=== PATIENT | male | born 1930 | race Caucasian/White ===

== ENCOUNTER 2016-12-18 02:37 | Emergency (ER) | payer MEDICARE ==
[2016-12-18] MEDS ORDERED: NS 0.9% 1000 ML* 1,000 ML IV ONE ×2 (03:00→03:30)
[2016-12-18 04:06] LABS: Add Diff/Slide Review? Slide Review Added; Comments Flag Yes; Hematocrit 36 % (42-52); Mean Corpuscular HGB Conc 33 g/dl (31-36); Mean Corpuscular Hemoglobin 30 pg (27-31); Mean Corpuscular Volume 89 fL (80-94); Mean Platelet Volume 8 um3 (7.4-10.4); Red Blood Count 4.06 10^6/ul (4.0-5.4); Red Cell Distribution Width 14 % (10.5-15); White Blood Count 12.3 10^3/ul (3.5-10.8)
[2016-12-18 04:22] LABS: Albumin 2.9 g/dL (3.2-5.2); BUN/Creatinine Ratio 19.5 (8-20); Calcium 8.2 mg/dL (8.6-10.3); EGFR African American 107.5 (>60); EGFR Non-African American 83.6 (>60); Globulin 2.6 g/dL (2-4); Magnesium 1.8 mg/dL (1.9-2.7); Potassium 4.1 mmol/L (3.5-5.0); Total Bilirubin 0.6 mg/dL (0.2-1.0); Total Protein 5.5 g/dL (6.4-8.9)
[2016-12-18 04:24] LABS: Troponin I 0.01 ng/mL (<0.04)
[2016-12-18 04:31] LABS: TSH (Thyroid Stimulating Horm) 2.3 mcIU/mL (0.34-5.60)
[2016-12-18] MEDS ORDERED: Magnesium Oxide TAB* 400 MG PO ONE ×2 (05:51→06:02)
--- NOTE | 2016-12-18 06:12 | ED ---
Guanakito Do Aidan, scribed for Robles Castañeda on 12/18/16 at 0401 . Syncope/Near Syncope - HPI Summary HPI Summary: 86 y/o male presents to the ED with a complaint of an acute, moderate episode of syncope that occurred while he was sitting down roughly 30 minutes ago. During the event, his eyes rolled back and his jaw dropped. Additionally, during and just after the event, he could not see. Currently, he feels fine and denies any weakness or numbness. Hx of sepsis and gallbladder removal. No Hx of SD or stroke. - History Of Current Complaint Chief Complaint: EDSyncope Time Seen by Provider: 12/18/16 03:29 Hx Obtained From: Patient, Family/Investment Strategist Onset/Duration: Sudden Onset, Resolved Timing: Seconds - Pt was unconscious for close to a minute Context: Witnessed Activity At Onset: At Rest - sitting down Associated Head Trauma: No Aggravating Factor(s): Other - unknown Alleviating Factor(s): Other - unknown Associated Signs And Symptoms: Other - during event, Pt's eyes rolled back, his jaw dropped, and he became nonresponsive. Both during and after, he could not see. Currently he is symptomless Frequency: Episodes x___ - 1, Episodes Lasting ____ (in Mins/Days/Weeks/Years) - close to a minute - Allergies/Home Medications Allergies/Adverse Reactions: Allergies Allergy/AdvReac Type Severity Reaction Status Date / Time No Known Allergies Allergy Verified 12/18/16 03:07 PMH/Surg Hx/FS Hx/Imm Hx Infectious Disease History: No Infectious Disease History: Denies: Traveled Outside the [place] in Last 30 Days - Family History Known Family History: Positive: Hypertension - Social History Occupation: Employed Full-time Lives: With Family Alcohol Use: None Substance Use Type: Reports: None Smoking Status (MU): Never Smoked Tobacco Review of Systems Constitutional: Negative Eyes: Negative ENT: Negative Cardiovascular: Negative Respiratory: Negative Gastrointestinal: Negative Genitourinary: Negative Musculoskeletal: Negative Skin: Negative Positive: Syncope. Negative: Headache, Weakness, Paresthesia, Numbness, Slurred Speech Psychological: Normal All Other Systems Reviewed And Are Negative: Yes Physical Exam Triage Information Reviewed: Yes Vital Signs On Initial Exam: Initial Vitals Temp Pulse Resp BP Pulse Ox 97 F 69 16 68/46 95 12/18/16 02:58 12/18/16 02:58 12/18/16 02:58 12/18/16 02:58 12/18/16 02:58 Vital Signs Reviewed: Yes Appearance: Positive: Well-Appearing, No Pain Distress Skin: Positive: Warm, Skin Color Reflects Adequate Perfusion, Dry Head/Face: Positive: Normal Head/Face Inspection Eyes: Positive: EOMI, ANGIE ENT: Positive: Normal ENT inspection Neck: Positive: Supple, Nontender Respiratory/Lung Sounds: Positive: Clear to Auscultation, Breath Sounds Present Cardiovascular: Positive: Normal, RRR, Pulses are Symmetrical in both Upper and Lower Extremities Abdomen Description: Positive: Nontender, Soft Bowel Sounds: Positive: Present Musculoskeletal: Positive: Normal, Strength/ROM Intact Neurological: Positive: Normal, Sensory/Motor Intact, Alert, Oriented to Person Place, Time Psychiatric: Positive: Normal, Affect/Mood Appropriate AVPU Assessment: Alert - [place] Coma Scale Coma Scale Total: 15 Diagnostics - Vital Signs Vital Signs Temp Pulse Resp BP Pulse Ox 12/18/16 03:40 69 16 114/64 97 12/18/16 02:58 97 F 69 16 68/46 95 - Laboratory Result Diagrams: 12/18/16 04:00 12/18/16 04:00 Lab Statement: Any lab studies that have been ordered have been reviewed, and results considered in the medical decision making process. - CT BRAIN CT CT Interpretation: No Acute Changes - No acute brain parenchymal abnormality. No hemorrhage, mass or acute territorial infarct. Clear visualized sinuses. Visualized mastoid air cells clear., Positive (See Comments) - Age-related involutional changes and chronic small vessel ischemic changes. Small gas bubbles left facial and scalp soft tissues, probably related to recent IV injection. CT Interpretation Completed By: Radiologist - banquet set up person - EKG EKG 0237 Cardiac Rate: NL - 71 BPM EKG Rhythm: Sinus Rhythm EKG Interpretation: SINUS RHYTHM, RIGHT BUNDLE BRANCH BLOCK Course/Dx Course Of Treatment: This is an 86 y/o male presenting for syncope. CT was negative. The patient wishes to leave and is well enough to be discharged with a Dx of hypotension and dizziness. - Diagnoses Provider Diagnoses: Hypotension, Dizziness Discharge - Discharge Plan Condition: Stable Disposition: HOME Discharge Disposition Comment: Please follow up with your primary care provider within 3 days. Patient Education Materials: Hypotension (ED), Dizziness (ED) The documentation as recorded by the Guanakito durbin Aidan accurately reflects the service I personally performed and the decisions made by me, Robles Castañeda.
[2016-12-18 06:22] VITALS: BP 132/57
--- NOTE | 2016-12-18 08:24 | RAD ---
Indication: Dizziness, syncope. CT of the brain was performed without IV contrast. Ventricular structures are midline. No midline shift is noted. The extra-axial spaces are unremarkable. There is no intracranial mass or hemorrhage noted. No other high or low density lesions identified mastoid air cells and paranasal sinuses are clear. IMPRESSION: No intracranial mass or hemorrhage is noted.
== END 2016-12-18 06:21 | disposition home or self-care (01) ==
LOC: ED 02:37
DX: R42 Dizziness and giddiness (principal); I95.9 Hypotension, unspecified; R53.83 Other fatigue; I45.10 Unspecified right bundle-branch block
CPT/HCPCS: 36415; 70450; 80053; 83605; 83735; 84443; 84484; 85025; 93005; 96360; 96361; 99283

== ENCOUNTER 2017-02-26 20:48 | Inpatient (IN) | payer BC, MEDICARE ==
[2017-02-26 21:20] LABS: Hematocrit 38 % (42-52); Hemoglobin 12.4 g/dl (14.0-18.0); Mean Corpuscular HGB Conc 33 g/dl (31-36); Mean Corpuscular Hemoglobin 29 pg (27-31); Mean Corpuscular Volume 87 fL (80-94); Mean Platelet Volume 8 um3 (7.4-10.4); Red Blood Count 4.34 10^6/ul (4.0-5.4); Red Cell Distribution Width 14 % (10.5-15); White Blood Count 15.1 10^3/ul (3.5-10.8)
[2017-02-26 21:32] LABS: BUN/Creatinine Ratio 19.6 (8-20); Calcium 8.2 mg/dL (8.6-10.3); EGFR African American 100.8 (>60); EGFR Non-African American 78.4 (>60); Globulin 3.1 g/dL (2-4); Potassium 3.4 mmol/L (3.5-5.0); Total Bilirubin 0.5 mg/dL (0.2-1.0); Total Protein 6.1 g/dL (6.4-8.9)
[2017-02-26 21:39] LABS: Troponin I 0.06 ng/mL (<0.04)
--- NOTE | 2017-02-26 21:45 | RAD ---
Indication: Syncope. CT of the brain was performed without IV contrast. Ventricular structures are midline. No midline shift is noted. Central and cortical atrophy is noted. There is no evidence of intracranial mass or hemorrhage. No other high or low density lesions are identified. Deep white matter lucencies are noted consistent with chronic ischemic White matter change. Mastoid air cells and paranasal sinuses are otherwise unremarkable. Overall no changes noted since December 18, 2016. IMPRESSION: Chronic ischemic White matter change. No intracranial mass or hemorrhage.
[2017-02-26] MEDS ORDERED: Iohexol 350* (CONTRAST) 500 ML MDV IV ONE (21:52)
--- NOTE | 2017-02-26 22:02 | RAD ---
Indication: Syncope, neck pain. CT of the cervical spine was obtained in the axial plane. Sagittal and coronal reconstructed images were obtained. The skull base demonstrates no fracture. C1 ring is intact. Degenerative changes of the atlantoaxial joint is noted. At C2-C3, C3-C4, C4-C5, there is no disc protrusion noted. No fractures identified. Degenerative disc disease at C5-C6 with dorsal osteophyte. No definite central stenosis is noted. There may be right foraminal stenosis is noted. At C6-C7 degenerative disc disease with spondylytic ridge flattens the thecal sac. No central or foraminal stenosis is noted. At C7-T1 disc is preserved in height and signal. 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 No fractures identified.
[2017-02-26 22:03] LABS: TSH (Thyroid Stimulating Horm) 2.43 mcIU/mL (0.34-5.60)
[2017-02-26] MEDS ORDERED: Morphine INJ* 2 MG/ML 1 ML SYRINGE IV ONE (22:27)
--- NOTE | 2017-02-26 22:52 | ED ---
I, Oh,Lisseth, scribed for Robbie Barahona MD on 02/26/17 at 2106 . 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 Daughter is present at bedside and provides collateral. Pt called his daughter this evening stating that he "wasn't feeling good". Daughter visited pt and noted pt with chills, fever of 100.2 F, SOB, and VALDOVINOS. She hydrated pt with getorade. Pt ambulated out onto deck to take a leak "at the edge of wood" since their bathroom is being redone. Daughter heard a bang and found pt had fallen on his back against the wooden chair on deck. Daughter is unsure how long the syncopal episode was. Positive upper back pain, and head laceration at left parietal lobe. Pt was last seen in ED for similar complaints on 12/18/2016, after which pt was admitted. He reports that he is currently not on blood thinner. - History Of Current Complaint Time Seen by Provider: 02/26/17 20:50 Hx Obtained From: Patient, Family/Director Hris, EMS Onset/Duration: Resolved Timing: Intermittent Episode Lasting Context: Unwitnessed Aggravating Factor(s): Nothing Alleviating Factor(s): Spontaneous Resolution Associated Signs And Symptoms: Shortness Of Breath - Allergies/Home Medications Allergies/Adverse Reactions: Allergies Allergy/AdvReac Type Severity Reaction Status Date / Time No Known Allergies Allergy Verified 12/18/16 03:07 Home Medications: Home Medications Aspirin [Aspirin 81 MG TAB] 81 mg PO DAILY 02/26/17 [History Confirmed 02/26/17] Omeprazole CAP* [Prilosec CAP* 20 MG] 20 mg PO DAILY 02/26/17 [History Confirmed 02/26/17] Tamsulosin CAP* [Flomax CAP*] 0.4 mg PO DAILY 02/26/17 [History Confirmed ] PMH/Surg Hx/FS Hx/Imm Hx Neurological History: Reports: Other Neuro Impairments/Disorders - previous syncopal episode Infectious Disease History: Denies: Traveled Outside the [place] in Last 30 Days - Family History Known Family History: Positive: Hypertension - Social History Alcohol Use: None Hx Substance Use: No Substance Use Type: Reports: None Hx Tobacco Use: No Smoking Status (MU): Never Smoked Tobacco Review of Systems Positive: Fever - temperature of 100.2 F at home, Chills Positive: Shortness Of Breath Positive: Other - upper back pain Positive: Other - laceration at left parietal lobe Positive: Headache All Other Systems Reviewed And Are Negative: Yes Physical Exam Triage Information Reviewed: Yes Vital Signs Reviewed: Yes Appearance: Positive: No Pain Distress, Ill-Appearing Skin: Positive: Warm Head/Face: Positive: Other - 3cm post occipital lac Eyes: Positive: ANGIE ENT: Positive: Hearing grossly normal Neck: Positive: Supple Respiratory/Lung Sounds: Positive: Clear to Auscultation, Breath Sounds Present Cardiovascular: Positive: RRR Abdomen Description: Positive: Nontender, Soft Bowel Sounds: Positive: Present Musculoskeletal: Positive: Strength/ROM Intact Neurological: Positive: Alert, Oriented to Person Place, Time Procedures - Laceration/Wound Repair 1 Location: head - left parietal lobe Description: Stellate Betadine Prep?: No Laceration/Wound Explored: clean Closure: [place] #__ - 5 Layer Closure?: No Sterile Dressing Applied?: No Diagnostics - Laboratory Result Diagrams: 02/27/17 05:06 02/26/17 21:10 Lab Statement: Any lab studies that have been ordered have been reviewed, and results considered in the medical decision making process. - Radiology CXR Radiology Interpretation Completed By: ED Physician - CT Brain CT Interpretation: No Acute Changes - Chronic ischemic White matter change. No intracranial mass or hemorrhage. 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 No fractures identified. CT Interpretation Completed By: Radiologist CTA Chest/thorax CT Interpretation: No Acute Changes - No evidence of PE. CT Interpretation Completed By: Radiologist - EKG 210 Cardiac Rate: NL - 81 bpm EKG Rhythm: Sinus Rhythm EKG Interpretation: RBBB Re-Evaluation - Re-Evaluation First Eval Re-Evaluation Time: 00:03 Comment: in room to place sruthi on left parietal head laceration. 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 Pt was reported to have complained of chills, SOB, and "not feeling well" before the episode. Daughter came over in her home in neighborhood to check on patient and hydrated him with getorade. Pt was seen ambulating out to deck and was later found to have syncopized by daughter after a loud bang. Pt had fallen down on his back onto wooden deck chair. Blood work is noted with elevated D-dimer over 1050, lactic acid of 2.6, and trop of 0.06. CT Brain is noted with chronic change in white matter. CT C-spine is noted with denerative changes without evidence of fracture or acute finding. Plan of care is discussed with Dr. Mims, hospitalist road commissioner. - Diagnoses Provider Diagnoses: Syncope - Physician Notifications Discussed Care of Patient With: Oswaldo Mims Time Discussed With Above Provider: 21:55 Instructed by Provider To: Admit As Inpatient - Critical Care Time Critical Care Time: 30-74 min Discharge - Discharge Plan Condition: Fair Disposition: ADMITTED TO [facility] The documentation as recorded by the Terry durbin Soohyun accurately reflects the service I personally performed and the decisions made by me, Robbie Barahona MD.
[2017-02-27 00:33] LABS: Urine Bacteria Absent (Absent); Urine Bilirubin Negative (Negative); Urine Glucose 2+(150 mg/dL) (Negative); Urine Nitrite Negative (Negative)
[2017-02-27] MEDS: NS 0.9% 1000 ML* 1,000 ML IV SCH ×3 (01:43→22:34)
[2017-02-27] MEDS: Acetaminophen TAB* 325 MG PO PRN ×3 (01:46→16:36)
[2017-02-27 05:19] LABS: Hematocrit 34 % (42-52); Hemoglobin 11.3 g/dl (14.0-18.0); Mean Corpuscular HGB Conc 33 g/dl (31-36); Mean Corpuscular Hemoglobin 29 pg (27-31); Mean Corpuscular Volume 87 fL (80-94); Mean Platelet Volume 8 um3 (7.4-10.4); Red Blood Count 3.94 10^6/ul (4.0-5.4); Red Cell Distribution Width 14 % (10.5-15); White Blood Count 14.8 10^3/ul (3.5-10.8)
[2017-02-27] MEDS: Morphine INJ* 2 MG/ML 1 ML SYRINGE IV PRN ×3 (05:23→23:42)
[2017-02-27] MEDS ORDERED: Heparin VIAL(*) 5000 UNITS/ML VIAL (FIVE THOUSAND) SUBCUT SCH (06:00)
--- NOTE | 2017-02-27 06:33 | PN ---
Progress Note - Progress Note Date of Service: 02/27/17 Note: Spoke to Dr. Grider - quality control lead Neurosurgeon - cell number [phone] . He does not see T8 fracture on CT as reported by quality control lead radiology. Recommends TLSO brace, then ambulate, then MRI of thoracic spine. He will advise Dr. Lynn.
[2017-02-27 06:39] LABS: EGFR African American 118.4 (>60); EGFR Non-African American 92.1 (>60); Potassium 3.9 mmol/L (3.5-5.0)
--- NOTE | 2017-02-27 08:57 | RAD ---
Indication: Syncope. 2 views of the chest and shape no mediastinal shift. Cardiomegaly is noted. No alveolar consolidation is noted. No pleural fluid, pneumonia or pneumothorax is noted. IMPRESSION: No active cardiopulmonary disease is noted.
[2017-02-27] MEDS ORDERED: Tamsulosin CAP* 0.4 MG PO SCH (09:00)
[2017-02-27] MEDS: Aspirin EC Low Dose* 81 MG TAB.EC PO SCH (09:00)
[2017-02-27] MEDS: Omeprazole CAP* 20 MG PO SCH (09:00)
--- NOTE | 2017-02-27 09:35 | RAD ---
Indication: Syncope, elevated d-dimer. Contrast: Administered 73.0 ml of OMNIPAQUE 350 mg/ml CTA of the chest was performed without IV contrast administration. Coronal and sagittal reconstructed images were obtained. The pulmonary arterial tree is well opacified. There are no filling defects present to suggest pulmonary embolus. Small 5 mm AP window lymph nodes and precarinal nodes are noted. The heart is enlarged without pericardial effusion. The aorta demonstrates no evidence of aortic dissection or aneurysmal dilatation. Intimal wall thickening of the descending aorta is noted. Is noted. There is a hiatal hernia present. Bibasilar atelectasis is noted. No alveolar consolidation is noted. The thoracic spine demonstrates no compression fracture. IMPRESSION: No definite pulmonary embolus is noted. No pulmonary nodules are noted although dependent changes noted in the lung bases. Likely hiatal hernia.
--- NOTE | 2017-02-27 10:16 | RAD ---
Indication: Back pain after fall. CT of the thoracic spine was obtained in the axial plane. Sagittal and coronal reconstructed images were obtained. The vertebral bodies appear normal in height. No compression fracture is noted. There is a lucency through the vertebral body of T8. This is a background of diffuse osteopenia and extends through the transverse ligament. This likely represents a nondisplaced fracture. 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 The transverse processes are unremarkable. 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 Possibility of ankylosing spondylitis should BE considered. There is a transverse fracture through the T8 vertebra without displacement or retropulsed fragment.
--- NOTE | 2017-02-27 11:14 | HP ---
CC: Dr. Hartman * HISTORY AND PHYSICAL: DATE OF ADMISSION: 02/27/17 PRIMARY CARE PHYSICIAN: Dr. Hartman in [place]. CHIEF COMPLAINT: "I passed out." HISTORY OF PRESENT ILLNESS: The patient is an 86-year-old gentleman who presented to [facility] with a chief complaint that he had passed out earlier today while going out to the porch to urinate. He said he went to take his Corvette for a ride and then he started feeling lightheaded and had some blurry vision. He also had some shortness of breath. He said prior to that, he had mowed the lawn for a little bit and also did not feel too well. He finally made it to his daughter's house and he got on to the couch. He called his daughter over, but before she came, he decided he had to go to the bathroom and he went to the porch to urinate outside rather than walk upstairs to the bathroom. Apparently, he never made it and his daughter found him on the floor on the porch. He apparently fell backwards. He denied any tongue biting or urinary or bowel incontinence, but his eyes did roll back and he was rigid according to the daughter. He was not confused after that. The same thing happened in December. Again, he denied any chest pain, shortness of breath or palpitations prior to this. He does have some significant upper back pain, status post fall. PAST MEDICAL HISTORY: Significant for BPH, GERD, hyperlipidemia, borderline diabetes mellitus. PAST SURGICAL HISTORY: Significant for cholecystectomy. MEDICATIONS: Include Flomax 0.4 mg daily, Prilosec 20 mg daily, aspirin 81 mg daily, and an unknown statin 20 mg daily. ALLERGIES: He has no known drug allergies. FAMILY HISTORY: Reviewed and noncontributory. SOCIAL HISTORY: No tobacco, he quit many years ago. No alcohol or recreational drug use. He is retired. He worked for [employer]. He is . He has 5 children. His daughter, Deborah Sierra, is his healthcare proxy. REVIEW OF SYSTEMS: A 14-point review of systems was completed with the patient. All pertinent positives and negatives are in the history of present illness, otherwise it is negative. PHYSICAL EXAMINATION GENERAL: A pleasant gentleman lying in bed, in no acute distress. VITAL SIGNS: Temperature 97.9 degrees, heart rate 77 beats per minute, respiratory rate 22 breaths per minute, pulse ox 96%, blood pressure 157/57. HEENT: Normocephalic and atraumatic. Pupils are equal, round, and reactive to light. Moist mucous membranes. NECK: Supple. No JVD, bruits, palpable thyroid or lymphadenopathy. CHEST: Clear to auscultation and percussion bilaterally. CARDIOVASCULAR: S1, S2 appreciated. ABDOMEN: Positive bowel sounds in all 4 quadrants. Soft, nontender, and nondistended. No hepatosplenomegaly. EXTREMITIES: No cyanosis, clubbing, or edema, +2 peripheral pulses bilaterally. NEUROLOGIC: Alert and oriented x3. Moves all extremities. SKIN: No distinct rashes. LABORATORY DATA: His sodium is 141, potassium 3.4, chloride 107, CO2 27, BUN 18, creatinine 0.92, glucose 76, lactic acid is 2.6. Troponin is 0.06. Alk phos 134. White count 10.1, hemoglobin 12.4, hematocrit 38, platelets are 317, absolute neutrophils 11.6, D-dimer is greater than . UA is +2 rbc's, trace wbc's, negative leukocyte esterase. EKG shows normal sinus rhythm at a rate of 81 beats per minute. Normal axis, right bundle branch block pattern. His chest x-ray shows no acute infiltrates. Chest CTA shows no pulmonary embolism, thoracic spine CT was preliminary read as a transverse fracture of the T8 vertebral body and also minimal stranding noted of the anterior longitudinal ligament defect consistent with hematoma. ASSESSMENT AND PLAN: 1. Syncope. Right now, the etiology is uncertain. He does have a slightly high white count. He has got no indication of an infection at this time. He may be slightly dehydrated. I will give him some fluids with normal saline at 100 cc an hour. We will cycle his troponins. If his troponins bump up, we will hold on heparinizing him as he might have a slight hematoma around the possible T8 fracture. See below. 2. Some elevated troponins. His troponins did come back somewhat elevated. I am going to call Cardiology. Again, I did not heparinize him because of the possible small hematoma. I have ordered a transthoracic echo and we will continue to cycle his troponins and he is on telemetry. Cardiology to see. 3. Questionable seizure. I think this is unlikely, but his daughter said he was rigid. His eyes rolled back. I will get an EEG as well. 4. Questionable T8 fracture. I spoke to Neurosurgery personal financial representative. I will get a TLSO brace. We will get an MRI of his back and Neurosurgery to see tomorrow morning. He will be on bed rest. 5. Benign prostatic hypertrophy. Continue Flomax. 6. Gastroesophageal reflux disease. Stable. Continue PPI. 7. FEN. Regular diet. 8. DVT prophylaxis. Sequential compression stockings, hold heparin because of possible hematoma. 9. The patient is a full code. TIME SPENT: Over 75 minutes were spent on this H and P; more than 40 minutes of which was spent in direct [id number] contact with the patient in evaluation , physical exam, counseling, and coordination of care. [id number]/[facility] #: [id number] MTDD
--- NOTE | 2017-02-27 11:35 | PN ---
Subjective Date of Service: 02/27/17 Interval History: Patient seen this morning with family present. Continues to have back pain, controlled with morphine. Reports that he "over did it" yesterday. Was exerting himself, doing a lot chores and not keeping hydrated. His syncopal episode was preceded by light-headedness which occurred after standing and walking out to the deck to urinate. Has hx of this in the past. Family History: Unchanged from Admission Social History: Unchanged from Admission Past Medical History: Unchanged from Admission Objective Active Medications: Acetaminophen (Tylenol Tab*) 650 mg PO Q4H PRN Aspirin (Aspirin Ec Low Dose*) 81 mg PO DAILY RACHEL Sodium Chloride (Ns 0.9% 1000 Ml*) 1,000 mls @ 100 mls/hr IV PER RATE RACHEL Morphine Sulfate (Morphine Inj (Syringe)*) 2 mg IV Q2H PRN Omeprazole (Prilosec Cap*) 20 mg PO DAILY@0730 RACHEL Tamsulosin HCl (Flomax Cap*) 0.4 mg PO DAILY [facility] Oxygen Devices in Use Now: None Appearance: Elderly, M, laying in bed in NAD Eyes: No Scleral Icterus Ears/Nose/Mouth/Throat: Mucous Membranes Moist Neck: NL Appearance and Movements; NL JVP Respiratory: Symmetrical Chest Expansion and Respiratory Effort, Clear to Auscultation Cardiovascular: NL Sounds; No Murmurs; No JVD, RRR Abdominal: - - Obese, soft, NTND, BS+ Lymphatic: No Cervical Adenopathy Extremities: No Edema Skin: No Rash or Ulcers Neurological: Alert and Oriented x 3, - - able to move all 4 extremities, some limitations from pain Result Diagrams: 02/27/17 05:06 02/27/17 05:08 Assess/Plan/Problems-Billing Assessment: Syncope 2/2 orthostatic hyptension, troponin elevation, T8 fx in an 86 yo M with hx of BPH, GERD, HLD, borderline DM - Patient Problems (1) Syncope Current Visit: Yes Comment: Seems like it was orthostatic in nature. BPs still a bit soft, continue IVF. Monitor on telemetry. EEG ordered, pending. (2) Elevated troponin Current Visit: Yes Comment: Appreciate Cardiology assistance. Peaked at 0.29. Etiology unclear, echo ordered will get NST in AM as well. Monitor on tele. ASA 81 mg daily. (3) T8 vertebral fracture Current Visit: Yes Comment: NS contacted, recommend TLSO brace, pain control. Plan for MRI in AM. (4) BPH (benign prostatic hyperplasia) Current Visit: Yes Comment: Continue flomax, change to qhs (5) GERD (gastroesophageal reflux disease) Current Visit: Yes Comment: Continue PPI (6) DVT prophylaxis Current Visit: Yes Comment: SCDs
--- NOTE | 2017-02-27 14:01 | CONS ---
CARDIOLOGY CONSULTATION: DATE OF CONSULT: 02/27/17 INDICATION FOR CONSULTATION: Syncope, abnormal EKG. HISTORY OF PRESENT ILLNESS: The patient is an 86-year-old gentleman with little past medical history, who has been admitted to the emergency room after a syncopal episode. The patient states that he was at home yesterday, he was mowing his lawn, after he got done mowing his lawn, he felt fatigued and uncomfortable; however, decided to go for a drive in his car. He was driving around and felt even more poorly. It was a diffuse fatigue, he denied any chest pain, he denied any shortness of breath, he denied any orthopnea. The patient stopped at his daughter's house and was lying on the couch. The patient states that he stood up to go use the bathroom and felt dizzy. He tried to place his hand on the wall and fell backwards injuring his back and the back of his head. Again, the patient did not have any episodes of palpitations, no chest pain, no nausea. The patient was transported to the emergency room. On arrival to the emergency room, the patient's EKG demonstrates normal sinus rhythm with a right bundle-branch block, it is the same EKG as in December. The patient was admitted to the emergency room in December with another syncopal episode. The patient states that he was already in the emergency room with his who is not feeling well. The patient states he was standing for approximately 4 hours, he did not have anything to drink or eat all day. His was being discharged from the hospital when he started feeling lightheaded and dizzy and collapsed in the emergency room. The patient' s EKG at that time demonstrated normal sinus rhythm with a right bundle-branch block. All other laboratory studies were unremarkable at that time. In speaking with the patient today, his only complaint is back pain. The patient did have a CT of his back, which showed a nondisplaced fracture of his T8 vertebrae. The patient states that a couple of months ago, he did have his gallbladder removed, and since then, his diet has been poor, although he denies any prolonged episodes of diarrhea or other GI upset. PAST MEDICAL HISTORY: Only significant for gastroesophageal reflux disease and BPH. OUTPATIENT MEDICATIONS: 1. Flomax 0.4 mg a day. 2. Omeprazole 20 mg a day. 3. Aspirin 81 mg a day. ALLERGIES: No known drug allergies. FAMILY HISTORY: Not obtained. SOCIAL HISTORY: He is . He lives most of the time in [place] that is where his primary care physician is. He denies tobacco. Rare alcohol intake. REVIEW OF SYSTEMS: Positive only for his HPI. No changes in weight. No recent fevers or chills. PHYSICAL EXAM: Height is 6 feet 2 inches, weight is 182 pounds, temperature 97.8, heart rate is 80, blood pressure 105/60, respiratory rate is 18, oxygen saturation 94% on room air. Sclerae anicteric. Oropharynx is pink without erythema. Carotids are 2+ without bruits. JVD is normal. Thyroid is normal. His scalp does have an abrasion from when he fell. Cardiac Exam: S1, S2 without any murmurs, rubs, or gallops. PMI is normal. Lungs are clear to auscultation anteriorly. The patient is unable to roll over because of his spine fracture. Abdomen is soft, nontender, and nondistended with normoactive bowel sounds. Extremities showed no edema. He has 2+ pulses throughout. The patient is awake and alert and oriented. He moves all 4 extremities equally. Unable to test ambulation as he has a thoracic spine fracture. DIAGNOSTIC STUDIES/LAB DATA: CBC: White count is 14, hemoglobin 11, hematocrit 34, platelet count 269. Chemistries within normal limits. BUN 16, creatinine 0.8. Initial troponin 0.21, peak troponin 0.29. TSH 2.43. D-dimer greater than 1050. EKG demonstrates normal sinus rhythm with a right bundle-branch block. IMPRESSION: This is an 86-year-old gentleman who came to the emergency room after a syncopal episode. Again, the patient had a similar syncopal episode back in December. Each of these are associated with poor p.o. oral and fluid intake for a time prior to his episode of syncope, each has occurred with changing from a sitting to a standing position. I think these both represent orthostatic events, they are unlikely to represent cardiac arrhythmias. The patient does have an elevated troponin level of unclear significance. The patient will get an echocardiogram and a chemical nuclear stress test as well as serum osmol to evaluate his cardiac status. Further recommendations pending results of his cardiac testing. [id number]/[facility] #: [id number] ZEE
[2017-02-28] MEDS: Acetaminophen TAB* 325 MG PO PRN (04:44)
[2017-02-28] MEDS: HYDROmorphone* 1 MG/ML 1 ML SYR IV SLOW PU PRN ×2 (07:28→12:30)
[2017-02-28] MEDS: Aspirin EC Low Dose* 81 MG TAB.EC PO SCH (07:35)
[2017-02-28] MEDS: Omeprazole CAP* 20 MG PO SCH (07:35)
[2017-02-28] MEDS: NS 0.9% 1000 ML* 1,000 ML IV SCH ×2 (08:43→22:54)
[2017-02-28] MEDS ORDERED: Docusate CAP* 100 MG PO PRN (09:18)
--- NOTE | 2017-02-28 09:23 | PN ---
Subjective Date of Service: 02/28/17 Interval History: Patient seen this morning. Had severe pain this AM, upset that he did not receive medication sooner. Improved now after dilaudid. Reporting posterior shoulder pain B/L, not much back pain. Family History: Unchanged from Admission Social History: Unchanged from Admission Past Medical History: Unchanged from Admission Objective Active Medications: Acetaminophen (Tylenol Tab*) 650 mg PO Q4H PRN Aspirin (Aspirin Ec Low Dose*) 81 mg PO DAILY [facility] Hydromorphone HCl (Dilaudid Iv*) 1 mg IV SLOW PU Q4H PRN Sodium Chloride (Ns 0.9% 1000 Ml*) 1,000 mls @ 100 mls/hr IV PER RATE [facility] Morphine Sulfate (Morphine Inj (Syringe)*) 2 mg IV Q2H PRN Omeprazole (Prilosec Cap*) 20 mg PO DAILY@0730 [facility] Tamsulosin HCl (Flomax Cap*) 0.4 mg PO BEDTIME [facility] Vital Signs 02/27/17 02/27/17 02/27/17 09:55 11:03 15:29 Temperature 98.7 F 97.9 F Pulse Rate 78 84 Respiratory 15 20 16 Rate Blood Pressure 88/45 146/59 (mmHg) O2 Sat by Pulse 95 95 Oximetry 02/27/17 02/27/17 02/27/17 19:56 20:00 23:28 Temperature 98.8 F 98.4 F Pulse Rate 97 82 Respiratory 20 20 16 Rate Blood Pressure 129/72 191/68 (mmHg) O2 Sat by Pulse 92 95 Oximetry 02/27/17 02/27/17 02/27/17 23:37 23:40 23:42 Temperature Pulse Rate Respiratory 18 Rate Blood Pressure 179/74 162/81 (mmHg) O2 Sat by Pulse Oximetry 02/28/17 02/28/17 02/28/17 00:42 03:26 07:28 Temperature 98.7 F Pulse Rate 82 Respiratory 15 24 18 Rate Blood Pressure 132/55 (mmHg) O2 Sat by Pulse 96 Oximetry 02/28/17 08:00 Temperature Pulse Rate Respiratory 18 Rate Blood Pressure (mmHg) O2 Sat by Pulse Oximetry Oxygen Devices in Use Now: None Appearance: Elderly, M, laying in bed in NAD Eyes: No Scleral Icterus Ears/Nose/Mouth/Throat: Mucous Membranes Moist Neck: NL Appearance and Movements; NL JVP Respiratory: Symmetrical Chest Expansion and Respiratory Effort, Clear to Auscultation Cardiovascular: NL Sounds; No Murmurs; No JVD, RRR Abdominal: NL Sounds; No Tenderness; No Distention Lymphatic: No Cervical Adenopathy Extremities: No Edema Skin: No Rash or Ulcers Neurological: Alert and Oriented x 3, - - Able to move LEs with no issues, point tenderness along mid T-spine Result Diagrams: 02/27/17 05:06 02/27/17 05:08 Assess/Plan/Problems-Billing Assessment: Syncope 2/2 orthostatic hyptension, troponin elevation, T8 fx in an 86 yo M with hx of BPH, GERD, HLD, borderline DM - Patient Problems (1) Syncope Current Visit: Yes Comment: Seems like it was orthostatic in nature. Continue IVF for now. Monitor on telemetry. EEG ordered, pending. (2) Elevated troponin Current Visit: Yes Comment: Appreciate Cardiology assistance. Peaked at 0.29. Etiology unclear, echo ordered will get NST in AM as well. Monitor on tele. ASA 81 mg daily. (3) T8 vertebral fracture Current Visit: Yes Comment: MRI this AM, awaiting TLSO brace. Discussed with NS, will follow-up after MRI for more definitive management (4) BPH (benign prostatic hyperplasia) Current Visit: Yes Comment: Continue flomax, changed to qhs (5) GERD (gastroesophageal reflux disease) Current Visit: Yes Comment: Continue PPI (6) DVT prophylaxis Current Visit: Yes Comment: SCDs
[2017-02-28] MEDS: Morphine INJ* 2 MG/ML 1 ML SYRINGE IV PRN ×3 (10:12→20:02)
[2017-02-28] MEDS: Senna TAB PO SCH (10:13)
--- NOTE | 2017-02-28 13:33 | RAD ---
HISTORY: 2 prominent elevation, shortness of breath, hypertension, hyperlipidemia, right bundle branch block COMPARISONS: None TECHNIQUE: A stress only myocardial perfusion study was performed, with pharmacologic stress. The stress portion was monitored by Dr. Raygoza. SPECT imaging was performed, with CT-based attenuation correction DOSE: Stress: Technetium 99m tetrofosmin, 25.6 millicuries, injected at 11:47 AM on February 28, 2017 Pharmacologic agent: Lexiscan FINDINGS: CARDIAC MONITORING: No acute changes of ischemia with stress. Baseline abnormality. PERFUSION: There is no appreciable perfusion defect on stress imaging OTHER: None IMPRESSION: NO APPRECIABLE PERFUSION DEFECTS ON STRESS IMAGING ASSESSMENT: LOW RISK. Based on imaging criteria from ACC/AHA 2002. Guideline Update for the Management of Patient's with Chronic Stable Angina, table 23. Noninvasive Risk Stratification.
[2017-02-28] MEDS ORDERED: Regadenoson* 0.4 MG/5 ML SYRINGE ONE (14:09)
[2017-02-28] MEDS ORDERED: HYDROmorphone* 1 MG/ML 1 ML SYR IV SLOW PU PRN (14:34)
--- NOTE | 2017-02-28 16:34 | ECHO ---
Patient: TAYLA VILLAGOMEZ [facility] Rec#: [id number] : 1930 Date: 02/28/2017 Age: 86y Height: 187.96 cm / 74.0 in Weight: 82.55 kg / 181.9 lbs Sex: M BSA: 2.09 Room#: [facility] Admit Date#: 02/27/2017 Type: Inpatient Referring: Oswaldo Mims MD Reading: Henrique Kelly MD Wire Border Assembler: Reina Casarez RD,RDMS Transthoracic Echocardiogram Indication: Syncope BP: 132/55 HR: 81 Rhythm: NSR Findings History: DM, HLD Technical Comments: The study quality is fair. Left Ventricle: The left ventricular chamber size is decreased. Mild concentric left ventricular hypertrophy is observed. The left ventricle appears hyperdynamic. The estimated ejection fraction is 60-65%. Abnormal left ventricular diastolic filling is observed, consistent with impaired relaxation. Left Atrium: The left atrium is slightly dilated. Right Ventricle: The right ventricle wall thickness is moderately increased. The right ventricular cavity size is normal. The right ventricular global systolic function is normal. Right Atrium: The right atrial cavity size is normal. Aortic Valve: The aortic valve structure is not well visualized. There is no evidence of aortic regurgitation. There is no evidence of aortic stenosis. Mitral Valve: The mitral valve leaflets appear normal. There is no evidence of mitral regurgitation. There is no evidence of mitral stenosis. Tricuspid Valve: The tricuspid valve leaflets are normal. There is trace tricuspid regurgitation. Unable to estimate the right ventricular systolic pressure. Pulmonic Valve: There is no evidence of pulmonic valve thickening. There is no evidence of pulmonic regurgitation. Pericardium: There is no significant pericardial effusion. A pericardial fat pad is visualized. Aorta: The aortic root appears normal. The aortic arch is not well visualized. Pulmonary Artery: The main pulmonary artery is not well visualized. Venous: The inferior vena cava is not visualized. Summary: There was not any prior study for comparison. Conclusions Mild concentric left ventricular hypertrophy is observed. The left ventricle appears hyperdynamic. The estimated ejection fraction is 60-65%. The right ventricular global systolic function is normal. There is no evidence of aortic stenosis. There is no evidence of mitral regurgitation. There is trace tricuspid regurgitation. Unable to estimate the right ventricular systolic pressure. There is no significant pericardial effusion. Measurements Name Value Normal Range RVIDd (AP) 2D 2.2 cm (0.9 - 2.6) RVDdMajor (2D) 3.7 cm (2.2 - 4.4) RAd ISD 4CH 5 cm (3.4 - 4.9) RA (A4C)W 3 cm (2.9 - 4.6) IVSd (2D) 1.2 cm (0.6 - 1) LVPWd (2D) 1.1 cm (0.6 - 1) LVIDd (2D) 3.1 cm (3.6 - 5.4) LVIDs (2D) 1.8 cm - LV FS (2D) 43 % (25 - 45) Aortic Annulus 2 cm (1.4 - 2.6) Ao root diameter (2D) 3.2 cm (2.1 - 3.5) Ascending Ao 3.4 cm (2.1 - 3.4) LA dimension (AP) 2D 3.3 cm (2.3 - 3.8) LAd ISD 4CH 5.5 cm (2.9 - 5.3) LA ISD 4CH W 4.1 cm (2.5 - 4.5) Name Value Normal Range MV E-wave Vmax 1 m/sec - MV deceleration time 218 msec - MV A-wave Vmax 1.2 m/sec - MV E:A ratio 0.8 ratio - LV septal e' Vmax 0.06 m/sec - LV lateral e' Vmax 0.05 m/sec - LV E:e' septal ratio 17 ratio - LV E:e' lateral ratio 20 ratio - Name Value Normal Range AV Vmax 1.4 m/sec - AV peak gradient 8 mmHg - LVOT Vmax 0.9 m/sec - LVOT peak gradient 3.2 mmHg - REGIS Vmax 0.6 m/sec - Name Value Normal Range MV Vmax 1.3 m/sec - MV VTI 30 cm - MV peak gradient 7 mmHg - MV mean gradient 2.6 mmHg - MV PHT 63 msec - MVA (PHT) 3.5 cm2 - Name Value Normal Range RAP 8 mmHg - Name Value Normal Range PV Vmax 0.9 m/sec - PV peak gradient 3.2 mmHg -
--- NOTE | 2017-02-28 18:14 | CONSULT ---
Consult Consult: Neurosurgery consult Date of admission: 02/24/17 Date of consult: 02/28/17 Reason for consult: T8 transverse fracture Referring provider: Surinder Garcia MD HPI: This is an 86 year old male with past medical history significant for who presented [place] [facility] after experiencing a fall when he was getting up during the night to use the restroom. He is a poor historian and much of the history is therefore provided by his daughter who is present in the room. He has had several recent falls and presented to the ED this time for evaluation. He complains of pain in three locations; his head, left shoulder and mid back. The pain is worse with movements and manageable with remaining still. He is frustrated that he did not receive pain medication last night and the pain therefore was uncontrolled. He denies radiating pain into the bilateral upper and lower extremities. He denies numbness, tingling and weakness in the upper and lower extremities. He denies numbness or pain wrapping around the thoracic chest. A TLSO is ordered and will arrive within the next day or so. He has been unable to get out of bed secondary to pain. Past medical history: 1. HTN 2. BPH 3. Possible diabetes 4. GERD Past surgical history: 1. Cholecystectomy Home medications: 1. Aspirin [Aspirin 81 MG TAB] 81 mg PO DAILY 02/26/17 [History Confirmed ] 2. Omeprazole CAP* [Prilosec CAP* 20 MG] 20 mg PO DAILY 02/26/17 [History Confirmed 02/26/17] 3. Tamsulosin CAP* [Flomax CAP*] 0.4 mg PO DAILY 02/26/17 [History Confirmed 07/03] Allergies: No known allergies Social history: This patient is retired and lives at home with his . He is a former smoker and does not consume alcohol. ROS: Full ROS completed. Physical exam: Vital Signs: Temp Pulse Resp BP Pulse Ox 98.0 F 83 19 144/68 94 02/28/17 15:08 02/28/17 15:08 02/28/17 17:20 02/28/17 15:08 02/28/17 15:08 General: Alert and oriented. Laying in bed, complains of pain with movements. Falling asleep during exam. HEENT: Head with small laceration intact with sruthi. PERRL, EOMI, sclerae anicteric. Mildly dry mucus membranes. Neck: Pain with neck movements. Supple, symmetric. CV: Radial pulses 2+ and equal. Pedal pulses palpable. Lungs: Breathing is nonlabored. Lungs are clear. Abdomen: Normoactive bowel sounds. Abdomen is soft, nontender and nondistended. Neuro: Speech is clear. Upper extremity strength 5/5 bilaterally, pain with biceps and triceps testing on the left. Lower extremity strength 5/5 bilaterally. Sensation intact throughout. Extremities: Full ROM although pain with movement of LUE. Imagin. CT thoracic spine shows ankylosing throughout and nondisplaced transverse fracture of T8. Assessment: This is an 86 year old male who presented to the [facility] after a fall on Tuesday. He complains of significant mid back pain not currently well controlled. Neuro intact. CT shows nondisplaced fracture of T8. Unable to obtain MRI at this time secondary to sruthi in head laceration. Plan: 1. I will have Dr. Smyth at [facility] in [place] review the imaging and offer recommendations. 2. Continue pain management
[2017-02-28] MEDS: oxyCODONE/Acetamin 5/325 MG* TAB PO PRN ×2 (18:43→23:16)
[2017-02-28] MEDS: Tamsulosin CAP* 0.4 MG PO SCH (20:01)
[2017-03-01] MEDS: Morphine INJ* 2 MG/ML 1 ML SYRINGE IV PRN ×3 (00:28→10:36)
--- NOTE | 2017-03-01 01:06 | EEG ---
ELECTROENCEPHALOGRAPHY: DATE OF STUDY: 02/28/17 - ROOM #449 LOCATION: The patient is an inpatient. ORDERING PHYSICIAN: Oswaldo Mims MD HISTORY: This is an 86-year-old man, who is admitted after an episode of passing out. This past Tuesday, he states that he did not feel well while mowing his lawn, so he decided to take his Corvette for a drive. He began to feel light-headed and had some blurry vision, drove to his daughter's house and laid on her couch. He then decided to go out onto the porch to urinate instead of walking upstairs and she found him down on the porch. He fell backwards, hitting his head. The daughter reportedly stated that he was rigid with his eyes rolled up into his head, but there were no tongue biting, jerking movements , or loss of bowel or bladder reported. He was not confused after this episode. He had a similar episode occur in December 2016. He fractured T8 after this fall. EEG is requested to evaluate for epileptiform abnormalities. MEDICATIONS: 1. Tamsulosin. 2. Aspirin 81 mg. 3. Omeprazole. 4. Acetaminophen. 5. Morphine. DESCRIPTION OF PROCEDURE: The majority of the recording is captured in the sleep state. The patient transitions frequently from stage 2 sleep, which is evidenced by well developed sleep spindles in the central and paracentral regions, and a drowsy state, which is denoted by [id number] voltage activity without an obvious posterior dominant rhythm. Each of these states lasts between 5 and 15 seconds. When the patient is roused from this state, the waking background shows normal organization with clearly defined anterior-to -posterior voltage in frequency gradients. There is a well-defined posterior dominant rhythm of 8 Hz, which is symmetrical, but slightly slower than expected for normal. Anteriorly, there is an expected pattern of lower voltage , irregular, mixed faster frequencies. The patient drowses and falls back to sleep very easily. Photic stimulation and hyperventilation were not performed. Throughout the recording, there were no definitive epileptiform abnormalities or focal features. IMPRESSION: This is a mildly abnormal waking and asleep EEG due to the presence of a slow posterior dominant rhythm. These findings are suggestive of diffuse, nonspecific encephalopathy. The frequent transitions between sleep and drowsiness could be related to sleep apnea. The patient was noted to be snoring by the technologist during these times. There are no definitive epileptiform abnormalities. [id number]/[facility] #: [id number] [facility] HOSPITALEsthela
[2017-03-01] MEDS: oxyCODONE/Acetamin 5/325 MG* TAB PO PRN ×4 (03:49→21:53)
[2017-03-01 04:37] LABS: Hematocrit 38 % (42-52); Hemoglobin 12.6 g/dl (14.0-18.0); Mean Corpuscular HGB Conc 33 g/dl (31-36); Mean Corpuscular Hemoglobin 29 pg (27-31); Mean Corpuscular Volume 86 fL (80-94); Mean Platelet Volume 8 um3 (7.4-10.4); Red Blood Count 4.42 10^6/ul (4.0-5.4); Red Cell Distribution Width 14 % (10.5-15); White Blood Count 13.2 10^3/ul (3.5-10.8)
[2017-03-01] MEDS: Senna TAB PO SCH ×2 (07:33→21:43)
[2017-03-01] MEDS: Aspirin EC Low Dose* 81 MG TAB.EC PO SCH (07:33)
[2017-03-01] MEDS: Omeprazole CAP* 20 MG PO SCH (07:33)
[2017-03-01] MEDS: NS 0.9% 1000 ML* 1,000 ML IV SCH (10:37)
[2017-03-01] MEDS ORDERED: Magnesium Hydroxide LIQ* 30 ML UDC PO PRN (11:26)
[2017-03-01] MEDS ORDERED: Morphine INJ* 2 MG/ML 1 ML SYRINGE IV PRN (11:27)
[2017-03-01] MEDS ORDERED: HYDROmorphone* 1 MG/ML 1 ML SYR IV SLOW PU PRN (11:27)
[2017-03-01] MEDS: Morphine TAB Extended Release (*) 15 MG TAB.ER PO SCH ×2 (12:29→23:27)
[2017-03-01] MEDS: Polyethylene Glycol 3350* 17 GM PACKET PO SCH (12:29)
[2017-03-01] MEDS ORDERED: Sodium Phosphate ADULT ENEMA* 118 ml bottle PR PRN (14:37)
--- NOTE | 2017-03-01 14:59 | PN ---
Subjective Date of Service: 03/01/17 Interval History: HOSPITALIST PROGRESS NOTE Patient seen and examined at bedside. Patient is very frustrated about his condition, upset "everyone keeps asking me the same questions!". States pain is controlled, but when asked to quantify, states it is 15/10. No localized weakness, no urinary complaints. Feels constipated. Has pain with minimal movement in bed. Family History: Unchanged from Admission Social History: Unchanged from Admission Past Medical History: Unchanged from Admission Objective Active Medications: Aspirin (Aspirin Ec Low Dose*) 81 mg PO DAILY [facility] Last Admin: 03/01/17 07:33 Dose: 81 mg Docusate Sodium (Colace Cap*) 100 mg PO BID [facility] Heparin Sodium (Porcine) (Heparin Vial(*)) 5,000 units SUBCUT Q8HR [facility] Hydromorphone HCl (Dilaudid Iv*) 1 mg IV SLOW PU Q4H PRN PRN Reason: SEVERE PAIN Magnesium Hydroxide (Milk Of Magnesia Liq*) 30 ml PO BID PRN PRN Reason: CONSTIPATION Last Admin: 03/01/17 12:29 Dose: 30 ml Morphine Sulfate (Ms Contin(*)) 15 mg PO Q12H [facility] Last Admin: 03/01/17 12:29 Dose: 15 mg Morphine Sulfate (Morphine Inj (Syringe)*) 2 mg IV Q2H PRN PRN Reason: Mild/moderate pain Omeprazole (Prilosec Cap*) 20 mg PO DAILY@0730 [facility] Last Admin: 03/01/17 07:33 Dose: 20 mg Oxycodone/Acetaminophen (Percocet 5/325 Tab*) 1 tab PO Q3H PRN PRN Reason: PAIN - MILD Last Admin: 03/01/17 07:33 Dose: 1 tab Polyethylene Glycol/Electrolytes (Miralax*) 17 gm PO DAILY [facility] Last Admin: 03/01/17 12:29 Dose: 17 gm Senna (Senokot Tab*) 2 tab PO BEDTIME [facility] Tamsulosin HCl (Flomax Cap*) 0.4 mg PO BEDTIME [facility] Last Admin: 02/28/17 20:01 Dose: 0.4 mg Vital Signs 03/01/17 03/01/17 03/01/17 11:25 11:36 12:29 Temperature 98.4 F Pulse Rate 90 Respiratory 20 17 18 Rate Blood Pressure 139/68 (mmHg) O2 Sat by Pulse 93 Oximetry Oxygen Devices in Use Now: None Appearance: Elderly male lying in bed in NAD. Eyes: No Scleral Icterus Ears/Nose/Mouth/Throat: Mucous Membranes Moist Neck: Trachea Midline Respiratory: Symmetrical Chest Expansion and Respiratory Effort, Clear to Auscultation Cardiovascular: RRR - Normal S1 and S2 Abdominal: NL Sounds; No Tenderness; No Distention Neurological: Alert and Oriented x 3, NL Muscle Strength and Tone Lines/Tubes/Other Access: Clean, Dry and Intact Peripheral IV Nutrition: Taking PO's Result Diagrams: 03/01/17 04:28 02/27/17 05:08 Assess/Plan/Problems-Billing Assessment: Mr. Garcia is an 86 yo M with PMH of BPH, GERD, HLD, glucose intolerance, who presented after a syncopal episode secondary to orthostatic hypotension, troponin elevation, found to have T8 fracture. - Patient Problems (1) Syncope Comment: - Probably orthostatic in nature. - D/c IVF. - Echo showed EF 60-65%, no wall motion abnormalities, no significant valve disease. - No reported arrhythmias on Telemetry. - Stress test was negative. (2) Elevated troponin Comment: - Appreciate Cardiology input. - Troponin peaked at 0.29. - Etiology unclear, echo with normal EF and no wall motion abnormalities, NST was negative. (3) T8 vertebral fracture Comment: - MRI could not be done as patient has sruthi on his head laceration. - Neurosurgery input appreciated - Dr. Smyth recommended TLSO brace and MRI after sruthi are removed to rule out ligamentous injury. He will not need bedrest once brace is in place. If patient is discharged before sruthi are removed, he can f/u with neurosurgery and have MRI as outpatient. - His major issues now is pain - will start long acting opiates (MS Contin) BID and continue PRN Percocet and Morphine IV - monitor for signs of sedation. - After brace is in place, will get OOB and start PT. (4) BPH (benign prostatic hyperplasia) Comment: - Continue Tamsulosin. (5) DVT prophylaxis Comment: - SCDs. D/w Neurosurgery - agree with anticoagulation with heparin. (6) GERD (gastroesophageal reflux disease) Comment: - Continue Omeprazole. (7) Full code status Status and Disposition: Inpatient. Family updated at bedside.
--- NOTE | 2017-03-01 16:24 | PN ---
Progress Note - Progress Note Date of Service: 03/01/17 Note: Subjective: Patient seen this afternoon and remains frustrated about care and level of pain. He states that everything is taking too long and that the plan keeps changing. He continues to complain of pain in the mid back without radiation, worse with movements in bed. Denies numbness, tingling and weakness. Objective: Vital Signs: Temp Pulse Resp BP Pulse Ox 97.9 F 97 16 135/85 94 03/01/17 15:33 03/01/17 15:33 03/01/17 15:46 03/01/17 15:33 03/01/17 15:33 General: Laying supine in bed. Falling asleep during interview and exam. Neuro: Motor and sensory intact Extremities: Full ROM Assessment: This is an 86 year old male with T8 compression fracture and significant pain resulting from fracture. Neuro intact. Pain remains the primary complaint at this time. I have discussed the case with Dr. Smyth at [facility] and he has reviewed the patient's thoracic spine CT scan. Due to the ankylosis and severity of pain, he is concerned for a ligamentous injury. He recommends TLSO, pain management and MRI of the thoracic spine after removal of sruthi from head laceration. There is no indication for surgery now. Case discussed with Dr. Ricardo. Plan: 1. TLSO arriving today 2. After TLSO in place, patient can get up out of bed and PT consult. 3. Continue pain management 4. No indication for surgery at this time. 5. Follow up with neurosurgery as outpatient for MRI.
[2017-03-01] MEDS: Heparin VIAL(*) 5000 UNITS/ML VIAL (FIVE THOUSAND) SUBCUT SCH (21:43)
[2017-03-01] MEDS: Tamsulosin CAP* 0.4 MG PO SCH (21:43)
[2017-03-01] MEDS: Docusate CAP* 100 MG PO SCH (21:53)
[2017-03-02] MEDS: Heparin VIAL(*) 5000 UNITS/ML VIAL (FIVE THOUSAND) SUBCUT SCH ×3 (06:04→21:10)
[2017-03-02] MEDS: oxyCODONE/Acetamin 5/325 MG* TAB PO PRN ×2 (06:04→14:54)
[2017-03-02] MEDS: Omeprazole CAP* 20 MG PO SCH (07:25)
[2017-03-02] MEDS: Aspirin EC Low Dose* 81 MG TAB.EC PO SCH (07:25)
[2017-03-02] MEDS: Docusate CAP* 100 MG PO SCH ×2 (07:29→21:14)
[2017-03-02] MEDS: Polyethylene Glycol 3350* 17 GM PACKET PO SCH (07:29)
[2017-03-02] MEDS ORDERED: HYDROmorphone* 1 MG/ML 1 ML SYR IV SLOW PU PRN (10:00)
[2017-03-02] MEDS ORDERED: Morphine INJ* 2 MG/ML 1 ML SYRINGE IV PRN ×2 (10:01→18:08)
[2017-03-02] MEDS: Morphine TAB Extended Release (*) 15 MG TAB.ER PO SCH (11:33)
[2017-03-02] MEDS: Artificial Tears* 15 ML BTL BOTH EYES PRN ×2 (14:52→21:10)
--- NOTE | 2017-03-02 14:54 | PN ---
Subjective Date of Service: 03/02/17 Interval History: HOSPITALIST PROGRESS NOTE Patient seen and examined at bedside. Pain is better controlled today. RN called earlier concerned with oversedation, but when I saw the patient he was easily arousable and not confused. He tells me the brace is "wonderful" and has relieved his pain tremendously. He elected to sleep with the brace, because "it was the first night I had no pain". Looking forward to working with PT today. Family History: Unchanged from Admission Social History: Unchanged from Admission Past Medical History: Unchanged from Admission Objective Active Medications: Artificial Tears (Lacrilube Oint*) 1 applic BOTH EYES BEDTIME [facility] Aspirin (Aspirin Ec Low Dose*) 81 mg PO DAILY [facility] Last Admin: 03/02/17 07:25 Dose: 81 mg Docusate Sodium (Colace Cap*) 100 mg PO BID [facility] Last Admin: 03/02/17 07:29 Dose: Not Given Heparin Sodium (Porcine) (Heparin Vial(*)) 5,000 units SUBCUT Q8HR [facility] Last Admin: 03/02/17 06:04 Dose: 5,000 units Hydromorphone HCl (Dilaudid Iv*) 1 mg IV SLOW PU Q8H PRN PRN Reason: SEVERE PAIN Magnesium Hydroxide (Milk Of Magnesia Liq*) 30 ml PO BID PRN PRN Reason: CONSTIPATION Last Admin: 03/01/17 12:29 Dose: 30 ml Morphine Sulfate (Ms Contin(*)) 15 mg PO Q12H [facility] Last Admin: 03/02/17 11:33 Dose: 15 mg Morphine Sulfate (Morphine Inj (Syringe)*) 2 mg IV Q4H PRN PRN Reason: Mild/moderate pain Omeprazole (Prilosec Cap*) 20 mg PO DAILY@0730 [facility] Last Admin: 03/02/17 07:25 Dose: 20 mg Oxycodone/Acetaminophen (Percocet 5/325 Tab*) 1 tab PO Q3H PRN PRN Reason: PAIN - MILD Last Admin: 03/02/17 06:04 Dose: 1 tab Polyethylene Glycol/Electrolytes (Miralax*) 17 gm PO DAILY [facility] Last Admin: 03/02/17 07:29 Dose: Not Given Polyvinyl Alcohol (Polyvinyl Alcohol 1.4% Opth*) 1 drop BOTH EYES Q2H PRN PRN Reason: DRY EYE Senna (Senokot Tab*) 2 tab PO BEDTIME [facility] Last Admin: 03/01/17 21:43 Dose: Not Given Tamsulosin HCl (Flomax Cap*) 0.4 mg PO BEDTIME [facility] Last Admin: 03/01/17 21:43 Dose: 0.4 mg Vital Signs 03/02/17 03/02/17 12:13 13:33 Temperature 98.4 F Pulse Rate 94 Respiratory 18 20 Rate Blood Pressure 102/44 (mmHg) O2 Sat by Pulse 93 Oximetry Oxygen Devices in Use Now: None Appearance: Elderly male lying in bed in NAD, appears a little sedated, but not lethargic. Eyes: No Scleral Icterus Ears/Nose/Mouth/Throat: Mucous Membranes Moist Neck: Trachea Midline Respiratory: Symmetrical Chest Expansion and Respiratory Effort, Clear to Auscultation Cardiovascular: RRR - Normal S1 and S2 Abdominal: NL Sounds; No Tenderness; No Distention Extremities: No Edema Neurological: Alert and Oriented x 3, NL Muscle Strength and Tone Lines/Tubes/Other Access: Clean, Dry and Intact Peripheral IV Nutrition: Taking PO's Result Diagrams: 03/01/17 04:28 02/27/17 05:08 Assess/Plan/Problems-Billing Assessment: Mr. Garcia is an 86 yo M with PMH of BPH, GERD, HLD, glucose intolerance, who presented after a syncopal episode secondary to orthostatic hypotension, troponin elevation, found to have T8 fracture. - Patient Problems (1) Syncope Comment: - Probably orthostatic in nature. - Echo showed EF 60-65%, no wall motion abnormalities, no significant valve disease. - No reported arrhythmias on Telemetry - will keep on Telemetry until he's walking with PT to look for any arrhythmias. - Stress test was negative. (2) Elevated troponin Comment: - Appreciate Cardiology input. - Troponin peaked at 0.29. - Etiology unclear, echo with normal EF and no wall motion abnormalities, NST was negative. - CTA chest was negative for PE despite positive d-Dimer - will check LE doppler. (3) T8 vertebral fracture Comment: - MRI could not be done as patient has sruthi on his head laceration. - Neurosurgery input appreciated - Dr. Smyth recommended TLSO brace and MRI after sruthi are removed to rule out ligamentous injury. He will not need bedrest once brace is in place. If patient is discharged before sruthi are removed, he can f/u with neurosurgery and have MRI as outpatient. - His major issues is pain - responded well to long acting opiates (MS Contin) BID, continue PRN Percocet and titrate down Morphine and Dilaudid IV - continue to hold medication for signs of sedation. Plan is to convert to MS Contine BID and Percocet PRN only on discharge. - Start PT/OT. (4) BPH (benign prostatic hyperplasia) Comment: - Continue Tamsulosin. (5) DVT prophylaxis Comment: - SCDs and SQ heparin. (6) GERD (gastroesophageal reflux disease) Comment: - Continue Omeprazole. (7) Full code status Status and Disposition: Inpatient. Daughter updated over the phone.
--- NOTE | 2017-03-02 18:12 | PN ---
Hospitalist Progress Note HOSPITALIST ADDENDUM Daughter updated at bedside. Patient has received 1 dose of MS Contin and 2 Percocets so far today (no IV opiates), but still a little sedated. Easily arousable and not confused, but slept through most of the day. Will cut down MS Contin to once a day, decrease Percocet and Morphine IV frequency, d/c Dilaudid. D/w RN - will try to avoid giving opiates tonight, unless he experiences significant pain (reason why I'm keeping Percocet and Morphine on his SEP, to be used sparingly).
--- NOTE | 2017-03-02 20:27 | RAD ---
INDICATION: Positive d-dimer, syncope. COMPARISON: There are no prior studies available for comparison. TECHNIQUE: Multiple real-time, color flow and Doppler tracings of both lower extremities were obtained. FINDINGS: The common femoral, femoral, profunda femoral and popliteal veins all demonstrate normal compressibility, augmentation with compression and phasic response with respiration. The posterior tibial and peroneal veins demonstrate normal compressibility and augmentation with compression. Note is made of occlusion of the distal right femoral and popliteal arteries. There is reconstitution of the arteries in the calf. IMPRESSION: 1. NO EVIDENCE FOR DEEP VENOUS THROMBOSIS. 2. OCCLUSION OF THE DISTAL RIGHT FEMORAL AND POPLITEAL ARTERIES.
[2017-03-02] MEDS: Tamsulosin CAP* 0.4 MG PO SCH (21:10)
[2017-03-02] MEDS: Artificial Tear OPHTH.OINT* 3.5 GM BOTH EYES SCH (21:14)
[2017-03-02] MEDS: Senna TAB PO SCH (21:14)
[2017-03-03] MEDS: oxyCODONE/Acetamin 5/325 MG* TAB PO PRN ×3 (02:20→18:29)
[2017-03-03 04:54] LABS: Hematocrit 39 % (42-52); Hemoglobin 12.8 g/dl (14.0-18.0); Mean Corpuscular HGB Conc 33 g/dl (31-36); Mean Corpuscular Hemoglobin 28 pg (27-31); Mean Corpuscular Volume 87 fL (80-94); Mean Platelet Volume 8 um3 (7.4-10.4); Red Blood Count 4.53 10^6/ul (4.0-5.4); Red Cell Distribution Width 15 % (10.5-15); White Blood Count 11.2 10^3/ul (3.5-10.8)
[2017-03-03 04:56] LABS: Add Diff/Slide Review? Slide Review Added; Comments Flag Yes
[2017-03-03 05:15] LABS: BUN/Creatinine Ratio 26.4 (8-20); Calcium 8.2 mg/dL (8.6-10.3); EGFR African American 133.8 (>60); Potassium 4.1 mmol/L (3.5-5.0)
[2017-03-03] MEDS: Heparin VIAL(*) 5000 UNITS/ML VIAL (FIVE THOUSAND) SUBCUT SCH ×3 (05:32→21:38)
[2017-03-03] MEDS: Aspirin EC Low Dose* 81 MG TAB.EC PO SCH (08:16)
[2017-03-03] MEDS: Omeprazole CAP* 20 MG PO SCH (08:16)
[2017-03-03] MEDS: Docusate CAP* 100 MG PO SCH ×2 (08:16→21:37)
[2017-03-03] MEDS ORDERED: Morphine TAB Extended Release (*) 15 MG TAB.ER PO SCH (09:00)
[2017-03-03] MEDS ORDERED: Iodixanol* (CONTRAST) 320 MG/ML 100 ML SDV IV ONE (11:52)
[2017-03-03] MEDS: Polyethylene Glycol 3350* 17 GM PACKET PO SCH (12:07)
--- NOTE | 2017-03-03 15:08 | PN ---
Subjective Date of Service: 03/03/17 Interval History: HOSPITALIST PROGRESS NOTE Patient seen and examined at bedside. He feels better today. Pain is controlled with lower dose of medications and he' s more alert today. Family History: Unchanged from Admission Social History: Unchanged from Admission Past Medical History: Unchanged from Admission Objective Active Medications: Artificial Tears (Lacrilube Oint*) 1 applic BOTH EYES BEDTIME [facility] Last Admin: 03/02/17 21:14 Dose: Not Given Aspirin (Aspirin Ec Low Dose*) 81 mg PO DAILY [facility] Last Admin: 03/03/17 08:16 Dose: 81 mg Docusate Sodium (Colace Cap*) 100 mg PO BID [facility] Last Admin: 03/03/17 08:16 Dose: 100 mg Heparin Sodium (Porcine) (Heparin Vial(*)) 5,000 units SUBCUT Q8HR [facility] Last Admin: 03/03/17 13:51 Dose: 5,000 units Magnesium Hydroxide (Milk Of Magnesia Liq*) 30 ml PO BID PRN PRN Reason: CONSTIPATION Last Admin: 03/01/17 12:29 Dose: 30 ml Morphine Sulfate (Morphine Inj (Syringe)*) 2 mg IV Q6H PRN PRN Reason: SEVERE PAIN Omeprazole (Prilosec Cap*) 20 mg PO DAILY@0730 [facility] Last Admin: 03/03/17 08:16 Dose: 20 mg Oxycodone/Acetaminophen (Percocet 5/325 Tab*) 1 tab PO Q6H PRN PRN Reason: PAIN - MILD TO MODERATE Last Admin: 03/03/17 08:39 Dose: 1 tab Polyethylene Glycol/Electrolytes (Miralax*) 17 gm PO DAILY [facility] Last Admin: 03/03/17 12:07 Dose: Not Given Polyvinyl Alcohol (Polyvinyl Alcohol 1.4% Opth*) 1 drop BOTH EYES Q2H PRN PRN Reason: DRY EYE Last Admin: 03/02/17 21:10 Dose: 1 drop Senna (Senokot Tab*) 2 tab PO BEDTIME [facility] Last Admin: 03/02/17 21:14 Dose: Not Given Tamsulosin HCl (Flomax Cap*) 0.4 mg PO BEDTIME [facility] Last Admin: 03/02/17 21:10 Dose: 0.4 mg Vital Signs 03/03/17 03/03/17 03/03/17 07:48 08:00 08:39 Temperature 97.9 F Pulse Rate 88 Respiratory 18 16 16 Rate Blood Pressure 149/70 (mmHg) O2 Sat by Pulse 96 Oximetry Oxygen Devices in Use Now: None Appearance: Elderly male lying in bed in NAD. Eyes: No Scleral Icterus Ears/Nose/Mouth/Throat: Mucous Membranes Moist Neck: Trachea Midline Respiratory: Symmetrical Chest Expansion and Respiratory Effort, Clear to Auscultation Cardiovascular: RRR - Normal S1 and S2 Abdominal: NL Sounds; No Tenderness; No Distention Extremities: No Edema, - - Good capillary refill on both LE Neurological: Alert and Oriented x 3, NL Muscle Strength and Tone Lines/Tubes/Other Access: Clean, Dry and Intact Peripheral IV Nutrition: Taking PO's Result Diagrams: 03/03/17 04:39 03/03/17 04:39 Assess/Plan/Problems-Billing Assessment: Mr. Garcia is an 86 yo M with PMH of BPH, GERD, HLD, glucose intolerance, who presented after a syncopal episode secondary to orthostatic hypotension, troponin elevation, found to have T8 fracture. - Patient Problems (1) Occlusion of right femoral artery Comment: - LE doppler was negative for DVT, but showed occlusion of distal right femoral and popliteal arteries. - Patient has diminished pulses, but good capillary refill on the right. Denies any c/o pain or claudication. - D/w patient and daughter - will pursue CTA aorta and run off to further evaluate RLE circulation. Patient would prefer to have any procedures, if needed , in [place]. (2) Syncope Comment: - Probably orthostatic in nature. - Echo showed EF 60-65%, no wall motion abnormalities, no significant valve disease. - No reported arrhythmias on Telemetry - will keep on Telemetry until he's walking with PT to look for any arrhythmias. - Stress test was negative. (3) Elevated troponin Comment: - Appreciate Cardiology input. - Troponin peaked at 0.29. - Etiology unclear, echo with normal EF and no wall motion abnormalities, NST was negative. - CTA chest was negative for PE despite positive d-Dimer - LE doppler negative for DVT. (4) T8 vertebral fracture Comment: - MRI could not be done as patient has sruthi on his head laceration. - Neurosurgery input appreciated - Dr. Smyth recommended TLSO brace and MRI after sruthi are removed to rule out ligamentous injury. He will not need bedrest once brace is in place. If patient is discharged before sruthi are removed, he can f/u with neurosurgery and have MRI as outpatient. - His major issues was pain vs sedation - at this point will continue only Percocet and monitor. - Continue PT/OT. - [facility] eval. (5) BPH (benign prostatic hyperplasia) Comment: - Continue Tamsulosin. (6) DVT prophylaxis Comment: - SCDs and SQ heparin. (7) GERD (gastroesophageal reflux disease) Comment: - Continue Omeprazole. (8) Full code status Status and Disposition: Inpatient. Daughter (Deborah - [phone]) updated.
--- NOTE | 2017-03-03 17:51 | RAD ---
INDICATION: Doppler exam showing occlusion of the right femoral and popliteal arteries. COMPARISON: Comparison is made with a prior allergic 70 venous duplex study from March 02, [address] angiogram of the chest from February 27, 2017. TECHNIQUE: A CT angiogram of the abdomen and pelvis and lower extremities was performed with intravenous contrast following intravenous injection of 125 ml of Visipaque 320 nonionic contrast. Contiguous axial sections were obtained from the lung bases through the ankles. Images were reconstructed in the coronal and sagittal planes and in a 3-D volume rendered reformatted. FINDINGS: CT OF THE ABDOMEN AND PELVIS: There are new small bilateral pleural effusions and dependent bilateral lower lobe atelectasis. The liver and spleen are normal in size. No significant focal hepatic abnormality is seen. The patient is status post cholecystectomy. The pancreas appears to be within normal limits. The kidneys and adrenal glands are normal in size. No hydronephrosis is seen. No significant enlarged retroperitoneal lymph nodes are seen. There is a moderate sized lateral hernia. The small bowel and colon appear nondistended. There is moderate descending and sigmoid diverticulosis without evidence for diverticulitis. No free intraperitoneal air or fluid is seen. No significant focal osseous abnormality is seen. CT ANGIOGRAM OF THE ABDOMINAL AORTA: The abdominal aorta is normal in caliber. There is mild calcific plaque and moderate diffuse soft plaque present which causes mild to moderate diffuse narrowing of the aorta. There is mild plaque at the origins of the celiac and superior mesenteric arteries without hemodynamically significant stenosis. The inferior mesenteric artery appears patent. There are 2 right and 2 left renal arteries which appear patent without gross stenosis. CT ANGIOGRAM OF THE RIGHT LOWER EXTREMITY, RIGHT ILIAC VESSELS: There is mild to moderate diffuse plaque within the common iliac artery without hemodynamically significant stenosis. The external iliac artery appears patent without stenosis. There is occlusion of the mid femoral artery. The popliteal artery is reconstituted. There is two-vessel runoff in the lower leg including the peroneal and posterior tibial arteries. The anterior tibial artery is occluded in its proximal portion. CT ANGIOGRAM LEFT LOWER EXTREMITY, LEFT ILIAC VESSELS: The left common iliac artery is mildly narrowed secondary to diffuse soft plaque. The external iliac artery appears widely patent. There are multiple areas of narrowing throughout the superficial femoral artery which are moderate to severe in degree. The popliteal artery appears patent without hemodynamically significant stenosis. There is two-vessel runoff in the lower leg including the peroneal and posterior tibial arteries. The anterior tibial artery is occluded in is proximal portion. IMPRESSION: 1. NEW SMALL BILATERAL PLEURAL EFFUSIONS. 2. MODERATE TO SEVERE DIFFUSE ATHEROSCLEROTIC CHANGE WITH SEVERE ATHEROSCLEROTIC CHANGE IN BOTH FEMORAL ARTERIES DESCRIBED.
[2017-03-03] MEDS: Tamsulosin CAP* 0.4 MG PO SCH (21:37)
[2017-03-03] MEDS: Senna TAB PO SCH (21:38)
[2017-03-03] MEDS: Artificial Tear OPHTH.OINT* 3.5 GM BOTH EYES SCH (21:39)
[2017-03-04] MEDS: Heparin VIAL(*) 5000 UNITS/ML VIAL (FIVE THOUSAND) SUBCUT SCH (05:41)
[2017-03-04] MEDS: oxyCODONE/Acetamin 5/325 MG* TAB PO PRN (06:51)
[2017-03-04] MEDS: Docusate CAP* 100 MG PO SCH (09:19)
[2017-03-04] MEDS: Aspirin EC Low Dose* 81 MG TAB.EC PO SCH (09:20)
[2017-03-04] MEDS: Polyethylene Glycol 3350* 17 GM PACKET PO SCH (09:20)
[2017-03-04] MEDS: Omeprazole CAP* 20 MG PO SCH (09:20)
[2017-03-04] MEDS ORDERED: Analgesic BALM* 114 GM TOPICAL PRN (11:21)
[2017-03-04] MEDS ORDERED: Bisacodyl SUPP* 10 MG SUPP PR ONE (11:55)
[2017-03-04 11:57] VITALS: BP 112/47
--- NOTE | 2017-03-04 12:04 | DCNOTE ---
Patient seen this morning with family present. Had light-headed episode while straining to have BM, no drop in BP, no events on tele. Feeling well aside from shoulder pain. On exam, RRR, s1 and s2 present, no m/g/r, TLSO in place, no neuro deficits, sruthi in place over posterior scalp lac, starting to scab over a bit, can likely remove in 1-2 days Plan to discharge to [facility] today for continued rehab. Will need outpatient f/u regarding RLE arterial occlusion. MRI spine to be done to evaluate for ligamentous damage, can be done during this admission if sruthi are out or as an outpatient.
[2017-03-04] MEDS ORDERED: Polyethylene Glycol 3350* 17 GM PACKET PO SCH (21:00)
--- NOTE | 2017-03-05 04:11 | DS ---
DISCHARGE SUMMARY: DATE OF ADMISSION: 02/26/17 DATE OF DISCHARGE: 03/04/17 PRINCIPAL DISCHARGE DIAGNOSES: 1. Syncope. 2. T8 fracture. 3. Significant peripheral artery disease. DISCHARGE MEDICATION REGIMEN: 1. Flomax 0.4 mg by mouth daily. 2. Omeprazole 20 mg by mouth daily. 3. Aspirin 81 mg by mouth daily. 4. Percocet 1 tablet by mouth every 6 hours as needed for pain. 5. Senna 2 tablets by mouth at bedtime. 6. MiraLAX 17 g by mouth 3 times daily. 7. Magnesium hydroxide 30 mL by mouth 3 times daily as needed for constipation. 8. Colace 100 mg by mouth 3 times daily. 9. Artificial tears 1 drop in both eyes every 2 hours as needed for dry eyes. 10. Artificial tears 1 application both eyes at bedtime. STUDIES DONE DURING HOSPITALIZATION: CT of the brain, impression: Chronic ischemic white matter ch jostin, no intracranial mass or hemorrhage. CT of the cervical spine, impression: Degenerative disc disease at multiple levels, no fracture barry ntified. Chest x-ray, impression: No active cardiopulmonary disease is noted. CTA of the chest, impression: No definite pulmonary embolus is noted. No pulmonary nodules are not ed, although dependent changes noted in the lung bases, likely hiatal hernia. CT of the thoracic spine, impression: Bridging syndesmophytes with appearance of a bamboo spine, po ssibility of ankylosing spondylitis should be considered. There is a transverse fracture through th e T8 vertebrae without displacement or retropulsed fragment. Transthoracic echocardiogram, conclusion: Mild concentric LVH, left ventricle appears hyperdynamic. Estimated ejection fraction is 60% to 65%. The right ventricular global systolic function is norm al. There is no evidence of aortic stenosis. No evidence of mitral regurgitation. Trace tricuspid regurgitation. Unable to estimate the right ventricular systolic pressure, no significant pericardi al effusion. Nuclear cardiac stress test, impression: No appreciable perfusion defect on stress imaging. EEG, impression: This is a mildly abnormal waking and a sleep EEG due to presence of slow posterior dominant rhythm. These findings are suggestive of diffuse nonspecific encephalopathy and frequent transitions between sleep and drowsiness could be related to sleep apnea. Patient is noted to be sn oring by the technologist during these times. There is no definitive epileptiform abnormalities. Lower extremity Doppler, impression: No evidence for deep venous thrombosis. Occlusion of the dista l right femoral and popliteal arteries. CTA abdomen, aorta and runoff, impression: New small bilateral pleural effusions, moderate to sever e, diffuse atherosclerotic change with severe atherosclerotic change in both femoral arteries. HISTORY OF PRESENT ILLNESS AND HOSPITAL SUMMARY: Please see the full history and physical by Dr. Jasen Mims for full details. Briefly, Mr. Garcia is an 86-year- old male with past medical history of BPH, GERD, hyperlipidemia, borderline diabetes mellitus who presented to the hospital after a syn copal episode. Patient overexerted himself, was not eating or drinking well. He was out mowing the lawn for number of hours. He then went to visit his daughter, was feeling lightheaded on the way t o her house. At her house, he laid down until he had to urinate. He stood up and went out to the orch, became dizzy and fell backwards. He struck his head on the ground causing a laceration. He w as brought into the hospital. His syncopal episode was felt to be due to orthostatic hypotension. However, he had a mild troponin elevation 0.06, which jumped to 0.21. This was trended and peaked a t 0.29. Cardiology was consulted. Echocardiogram was relatively unremarkable. Dr. Kelly recommend getting a cardiac stress test, which was also unremarkable. Patient also had an EEG that did not sh ow any evidence of epileptiform activity. On CT imaging, the patient was found to have a transverse fracture of T8. Neurosurgery was consulted , who recommended an MRI to evaluate for any ligamentous damage. However, he was unable to obtain t his as he had sruthi placed for his scalp laceration. The plan will be to get the MRI after the pa tient's sruthi are removed, which could possibly be done in the next day or 2. However, the MRI ca n also be done as an outpatient. Patient was also found to have an elevated D-dimer, which prompted evaluation for DVT or PE, which w as negative, however, his Doppler showed evidence of arterial disease. Patient had CTA of the abdom inal aorta with run-off, which showed significant diffuse atherosclerotic disease, however, specific ally he had an occlusion of the mid femoral artery on the right with reconstitution in the popliteal artery and he also had multiple areas of narrowing throughout the superficial femoral arteries on t he left, which are [id number] degree. This was discussed with the patient's family and he sh ould have further workup with possible intervention done once he is healed from the syncopal episode and T8 fracture. The patient was evaluated by PMRU and was felt to be a good candidate, was transferred there for fur ther rehabilitation here in the hospital. TIME SPENT: Total time spent on this discharge, 50 minutes. This is a summary of the hospitalization. Please see the full medical record for further details. [id number]/[facility] #: [id number]
== END 2017-03-04 13:09 | DRG 312 ==
LOC: ED 20:48 → MEDTELE 02-27 00:09 → OBSVTOIN 02-27 09:12
PROVIDERS: ADMIT Internal Medicine; ATTEND Hospitalist
PROC: 0HQ0XZZ Repair Scalp Skin, External Approach (ICD-10-PCS; principal; 2017-02-27)
PROC: 4A10X4Z Monitoring of Central Nervous Electrical Activity, External Approach (ICD-10-PCS; 2017-02-28)
PROC: 4A12XM4 Monitoring of Cardiac Stress, External Approach (ICD-10-PCS; 2017-02-28)
DX: I95.1 Orthostatic hypotension (principal); J90 Pleural effusion, not elsewhere classified; S22.069A Unspecified fracture of T7-T8 vertebra, initial encounter for closed fracture; I45.10 Unspecified right bundle-branch block; Z82.49 Family history of ischemic heart disease and other diseases of the circulatory system; E78.5 Hyperlipidemia, unspecified; K21.9 Gastro-esophageal reflux disease without esophagitis; N40.0 Benign prostatic hyperplasia without lower urinary tract symptoms; M50.30 Other cervical disc degeneration, unspecified cervical region; S01.01XA Laceration without foreign body of scalp, initial encounter; Y92.9 Unspecified place or not applicable; W19.XXXA Unspecified fall, initial encounter; Z90.49 Acquired absence of other specified parts of digestive tract; Z87.891 Personal history of nicotine dependence; R79.89 Other specified abnormal findings of blood chemistry; Y93.H2 Activity, gardening and landscaping; R73.03 Prediabetes; I77.1 Stricture of artery; I73.9 Peripheral vascular disease, unspecified; Z79.82 Long term (current) use of aspirin; I07.1 Rheumatic tricuspid insufficiency; G47.30 Sleep apnea, unspecified
CPT/HCPCS: 36415; 70450; 71020; 71275; 72125; 72128; 75635; 78452; 80048; 80053; 81003; 81015; 83605; 83735; 84443; 84484; 85025; 85379; 93005; 93017; 93306; 93970; 95819; A9270-GY; A9502; J1170; J1644; J2270; J2785; Q9967

== ENCOUNTER 2017-03-04 09:33 | Inpatient (IN) | payer MEDICARE ==
[2017-03-04] MEDS ORDERED: Bisacodyl SUPP* 10 MG SUPP PR PRN (13:53)
[2017-03-04] MEDS ORDERED: oxyCODONE/Acetamin 5/325 MG* TAB PO PRN (14:00)
[2017-03-04] MEDS: Heparin VIAL(*) 5000 UNITS/ML VIAL (FIVE THOUSAND) SUBCUT SCH ×2 (14:40→21:33)
[2017-03-04] MEDS: Analgesic BALM* 114 GM TOPICAL PRN (19:59)
[2017-03-04] MEDS: Docusate CAP* 100 MG PO SCH (21:32)
[2017-03-04] MEDS: Artificial Tear OPHTH.OINT* 3.5 GM BOTH EYES SCH (21:32)
[2017-03-04] MEDS: Senna TAB PO SCH (21:32)
[2017-03-04] MEDS: Tamsulosin CAP* 0.4 MG PO SCH (21:33)
--- NOTE | 2017-03-04 22:21 | HP ---
ADMISSION HISTORY AND PHYSICAL: DATE OF ADMISSION: 03/04/17 REASON FOR ADMISSION: T8 compression fracture. HISTORY OF PRESENT ILLNESS: Jaren Garcia is an 86-year-old male. He has a medical history significant for prostatic hypertrophy and normally takes Flomax for that. In addition, he has a history of gastroesophageal reflux disease. He has had a history of orthostatic hypotension over the past year. They have not found out a cause. On 02/27/17, the patient got up and was going out to his porch. The patient had some difficulty and was found on the floor on the porch by his daughter. The patient fell on his back. He had immediate pain on his back. He was brought to [facility] by his daughter. He had elevated troponin in the emergency room of 0.28. In addition, because of his back pain, he had an elevated D-dimer. He had a CT angiogram of his chest, which showed no definite pulmonary embolus. He later had a CAT scan of his thoracic spine, which showed a new compression fracture at T8. No displacement was noted. The patient had a laceration of his scalp and had sruthi placed on his scalp, so he was unable to have an MRI. He was seen by Neurosurgery, who recommended a TLSO brace. The patient was also noted to have excess sedation, which was felt to be due to pain medications. As far as his increased troponin , the patient did had a nuclear stress test, which showed normal perfusion with no cardiac issues. He was seen by Dr. Kelly, who felt that he had no cardiac issues. Because of his elevated D- dimer, he did have a Doppler of his lower extremities in addition to having had a CT angiogram. The Doppler showed occlusion of the distal right femoral and popliteal arteries. It was felt that even though he had diminished pulses, he had good capillary refill. Therefore, a CT angiogram of the aorta was done. Again, it demonstrated occlusion of the mid femoral artery. The popliteal artery seemed to be reconstituted. There was 2-vessel runoff in the lower leg including the peroneal and posterior tibial arteries. The anterior tibial artery was in its proximal portion. The patient will need outpatient followup regarding his arterial occlusion. He will have to have an MRI of his thoracic spine, when his sruthi are out to evaluate for any ligamentous damage in his thoracic spine. He did have a TLSO in place and neurologically he was mostly intact, he was felt to have physical therapy and occupational therapy needs. He is now being admitted for inpatient rehab, so he might return to independent living. PAST MEDICAL HISTORY: Significant for the aforementioned prostatic hypertrophy. He also has a history of GERD. CURRENT MEDICATIONS: Include: 1. Aspirin 81 mg daily. 2. He is on Prilosec. 3. Percocet for pain control. 4. Flomax. 5. Bowel medications. ALLERGIES: No known drug allergies. SOCIAL HISTORY: He is a nonsmoker, nondrinker. He lives with his in a 1- story house, there is a ramp to enter. REVIEW OF SYSTEMS: The patient reports difficulties with constipation and his last bowel movement was several days ago. No chest pain or shortness of breath. PHYSICAL EXAMINATION VITAL SIGNS: The patient's temperature is 98.1, blood pressure is 110/60, pulse 85, respirations 18. HEENT: His extraocular movements are intact. Tongue is midline. NECK: Supple. LUNGS: Sound clear to auscultation bilaterally. HEART: Sounds are regular. S1, S2 are audible. ABDOMEN: Soft and nontender. EXTREMITIES: His extremities showed normal muscle tone in his upper and lower extremities. Peripheral pulses were intact. NEUROLOGIC: He was awake, alert, oriented. Muscle strength seemed to be close to 5/5 in both upper and lower extremities. GAIT: He ambulated with contact guard, transferred with minimal amount of assistance. He was able to ambulate about 3 feet. ASSESSMENT: T8 compression fracture in a patient with orthostatic hypotension. PLAN: Integrate him into a comprehensive and therapeutic rehab program with the following goals: 1. Physical Therapy will work with the patient, they are going to work on functional transfer training, ambulation training with a walker. 2. Occupational Therapy will see the patient and work on his activities of daily living including toileting and toilet transfers. 3. Heparin for DVT prophylaxis. 4. Adequate analgesia. 5. His bowels will be regulated. 6. Continue Flomax at bedtime. 7. Continue Prilosec for GERD. 8. Advance directives: The patient is a full code. His and daughter are his surrogate decision makers. 9. Family training as appropriate. 10. Home with appropriate services. ESTIMATED LENGTH OF STAY: 7 to 10 days. [id number]/[facility] #: [id number] [facility]
[2017-03-04] MEDS: HYDROcodone/ACETAMIN 5-325 MG* 1 TAB PO PRN (23:20)
[2017-03-05] MEDS: HYDROcodone/ACETAMIN 5-325 MG* 1 TAB PO PRN ×3 (03:38→15:44)
[2017-03-05] MEDS: Analgesic BALM* 114 GM TOPICAL PRN (03:39)
[2017-03-05] MEDS: Heparin VIAL(*) 5000 UNITS/ML VIAL (FIVE THOUSAND) SUBCUT SCH ×3 (05:09→21:23)
[2017-03-05] MEDS: Omeprazole CAP* 20 MG PO SCH (07:43)
[2017-03-05] MEDS: Docusate CAP* 100 MG PO SCH ×2 (08:36→20:19)
[2017-03-05] MEDS: Aspirin Low Dose CHEW TAB* 81 MG PO SCH (08:36)
[2017-03-05] MEDS ORDERED: [UNRECOGNIZED DRUG - OTHER] TOPICAL PRN (17:07)
[2017-03-05] MEDS: Artificial Tear OPHTH.OINT* 3.5 GM BOTH EYES SCH ×2 (20:19→20:29)
[2017-03-05] MEDS: BIOFREEZE TOPICAL SCH (20:19)
[2017-03-05] MEDS: Tamsulosin CAP* 0.4 MG PO SCH (20:19)
[2017-03-05] MEDS: Senna TAB PO SCH ×2 (20:19→20:29)
[2017-03-06] MEDS: HYDROcodone/ACETAMIN 5-325 MG* 1 TAB PO PRN ×3 (00:22→21:14)
[2017-03-06] MEDS: Acetaminophen TAB* 325 MG PO PRN ×2 (04:22→11:38)
[2017-03-06] MEDS: Heparin VIAL(*) 5000 UNITS/ML VIAL (FIVE THOUSAND) SUBCUT SCH ×3 (06:14→21:21)
[2017-03-06] MEDS: Omeprazole CAP* 20 MG PO SCH (07:57)
[2017-03-06] MEDS: Aspirin Low Dose CHEW TAB* 81 MG PO SCH (08:04)
[2017-03-06] MEDS: Docusate CAP* 100 MG PO SCH ×2 (08:04→21:11)
[2017-03-06] MEDS: BIOFREEZE TOPICAL SCH ×2 (08:05→21:15)
--- NOTE | 2017-03-06 19:06 | RAD ---
INDICATION: Right shoulder pain COMPARISON: None TECHNIQUE: Routine frontal and Y views were obtained. FINDINGS: The bony structures, joint spaces, and soft tissues are normal for age. IMPRESSION: NO ACUTE BONY FINDINGS.
[2017-03-06] MEDS: Senna TAB PO SCH (21:09)
[2017-03-06] MEDS: Artificial Tear OPHTH.OINT* 3.5 GM BOTH EYES SCH (21:10)
[2017-03-06] MEDS: Tamsulosin CAP* 0.4 MG PO SCH (21:11)
[2017-03-07] MEDS: Omeprazole CAP* 20 MG PO SCH (06:57)
[2017-03-07] MEDS: Heparin VIAL(*) 5000 UNITS/ML VIAL (FIVE THOUSAND) SUBCUT SCH ×3 (06:57→22:06)
[2017-03-07 07:03] LABS: Add Diff/Slide Review? Slide Review Added; Comments Flag Yes; Hematocrit 39 % (42-52); Hemoglobin 12.7 g/dl (14.0-18.0); Mean Corpuscular HGB Conc 33 g/dl (31-36); Mean Corpuscular Hemoglobin 29 pg (27-31); Mean Corpuscular Volume 88 fL (80-94); Mean Platelet Volume 8 um3 (7.4-10.4); Red Blood Count 4.47 10^6/ul (4.0-5.4); Red Cell Distribution Width 15 % (10.5-15); White Blood Count 12.1 10^3/ul (3.5-10.8)
[2017-03-07 07:30] LABS: Albumin 2.9 g/dL (3.2-5.2); BUN/Creatinine Ratio 24.4 (8-20); Calcium 8.7 mg/dL (8.6-10.3); EGFR Non-African American 94.8 (>60); Globulin 2.9 g/dL (2-4); Potassium 3.9 mmol/L (3.5-5.0); Total Bilirubin 0.8 mg/dL (0.2-1.0); Total Protein 5.8 g/dL (6.4-8.9)
[2017-03-07] MEDS: Docusate CAP* 100 MG PO SCH ×2 (08:20→20:44)
[2017-03-07] MEDS: HYDROcodone/ACETAMIN 5-325 MG* 1 TAB PO PRN ×2 (08:20→12:47)
[2017-03-07] MEDS: Aspirin Low Dose CHEW TAB* 81 MG PO SCH (08:20)
[2017-03-07] MEDS: BIOFREEZE TOPICAL SCH ×2 (08:22→20:43)
[2017-03-07] MEDS: Acetaminophen TAB* 325 MG PO PRN (10:42)
--- NOTE | 2017-03-07 12:55 | PMRUTEAM ---
PMRU: Goals Current Status: Nursing: Current Status Skin Deviations [Left Upper Bruise Arm] Skin Deviations [Back] Bruise Skin Deviations [Right Hand] Other Skin Deviation Description [ backside of upper arm Left Upper Arm] Skin Deviation Description [ coccyx and mid back under brace Back] Skin Deviation Description [ mepilex in place Right Hand] Physical Therapy: Current Status Bed Mobility Assistance Supervision Transfer Moblility Assistance Supervision Transfer/Bed Mobility Rolling Walker Recommended Devices Ambulation Assistance Contact Guard Assist Ambulation Assistive Devices Rolling Walker Number of Feet Patient 5 Ambulated Stairs Assistance N/A Stairs Recommended Devices Two Rails Number of Stairs 0 Occupational Therapy: Current Status Upper Body Dressing Max Asst Lower Body Dressing Total Assist Bathing Mod Assist Toileting Total Assist Toilet Transfer Min Assist Eating Ind with Adaptive Equip Social Work: Current Status Discharge Plan return home with home care svs and family support Potential for Family Training pt's daughter is attentive and involved Anticipated Discharge Home Destination Discharge With home care svs and family support Goals: Physical Therapy: Updated Goals Transfer/Bed Mobility Rolling Walker Recommended Devices independent Occupational Therapy: Initial Goals Goals to be Completed in (Days 7-10 ) Upper Body Bathing Routine Modified Independent with Lower Body Bathing Routine Minimal Contact Assist Upper Body Dressing Routine Minimal Contact Assist Lower Body Dressing Routine Modified Independent with Toilet Hygeine and Clothing Modified Independent with Management Routine Toilet Transfer Routine Modified Independent with Step-In Shower Transfer Modified Independent with Routine Tub Transfer Routine Supervision/Set Up Functional Transfers for ADL Modified Independent with Grooming Routine Independent Feeding Routine Independent Social Work: Goals Discharge Plan return home with home care svs and family support Potential for Family Training pt's daughter is attentive and involved Anticipated Discharge Home Destination Discharge With home care svs and family support Care Plan: Care Plan ADL's - Improve/Maintain Start: 03/05/17 12:58 Freq: QSHIFT Status: Active Target: Activity Type Activity Date Activity User E-Sign Co-Sign Detail Recorded Client Recorded Date Recorded By Document 03/05/17 12:59 [id number] [id number] 03/05/17 13:00 [id number] 03/05/17 12:59 PMRU Outcome: ADL's/ADL Transfers Orders/Interventions Occupational Therapy Evaluation & Treatment Communication Tool in Patient Room Device Yes Address Deficits Secondary To: T8 fx with TLSO Patient to receive OT 5x/wk for 60-120 Therex min/day Self Care Management Group Therapy UE/LE ADL's with Assist Yes: [place] ADL Transfers with Assist Yes: Chidi Toileting: Transfers,Clothing Management Yes: Chidi ,Hygeine w/Assist Light Kitchen/Laundry w/Assist No Progression Toward Outcome/Goals Progressing Outcome/Goals Met Pt participated well in OT evaluation at bed level with log rolling left and right in supine for dressing/ bathing/ toileting with increased assistance. Pt with limited upright tolerance 2* c/ o right shoulder pain with sitting upright which limits independence and progress/ participation. DVT Prophylaxis- Improve/Maintain Start: 03/06/17 03:54 Freq: QSHIFT Status: Active Target: Activity Type Activity Date Activity User E-Sign Co-Sign Detail Recorded Client Recorded Date Recorded By Document 03/07/17 04:02 [id number] 03/07/17 04:02 [id number] 03/07/17 04:02 PMRU Outcome: DVT Prophylaxis Outcome/Goals Remains Free of DVT Complies with DVT Prophylaxis /Treatment Demonstrates Knowledge of DVT Prevention/ Treatment TEDS Stockings on Every AM, Off at HS Progression Toward Outcome/Goals Progressing /GI-Improve/Maintain Start: 03/06/17 03:54 Freq: QSHIFT Status: Active Target: Activity Type Activity Date Activity User E-Sign Co-Sign Detail Recorded Client Recorded Date Recorded By Document 03/07/17 04:02 [id number] [id number] 03/07/17 04:02 [id number] 03/07/17 04:02 PMRU Outcome: Genitourinary/ Gastrointestinal Genitourinary- Outcome/Goals Maintain/ Achieve Urinary Continence Maintain/ Achieve Adequate Urinary Output Gastrointestinal-Outcome/Goals Maintain/ Achieve Bowel Regularity in Accordance with Pt's Baseline Remain Free of Emesis Prevent Constipation Bowel Program Progression Toward Outcome/Goals - Progressing Progression Toward Outcome/Goals - GI Progressing Mobility- Improve/Maintain Start: 03/04/17 14:27 Freq: QSHIFT Status: Active Target: Activity Type Activity Date Activity User E-Sign Co-Sign Detail Recorded Client Recorded Date Recorded By Document 03/07/17 10:30 [id number] 03/07/17 10:30 03/07/17 10:30 PMRU Outcome: Mobility Physical Therapy Evaluation and Yes Treatment Activity OOB with Assistance Yes Device Yes Assistance Yes Patient to be seen 5x/wk for 60-120 min/ Therex day for: Mobility Training Gait Training Balance Other Therapy Comment TLSO Outcome/Goals Maintain/ Achieve Baseline Mobility Status Improve Mobility Status Demonstrates Proper Use of Assistive Devices Free from Complications of Immobility Progression Toward Outcome/Goals Not Progressing Bed Mobility Yes: Independent Transfers Yes: Modified independent with RW Gait x ft Yes: Modified independent 150 ' with RW Up/Down Stairs Yes: Independent 3 steps 2 rails With HEP Yes: Independent Medicine Note: Length of Stay: 8 days Anticipated Discharge Destination: Home Tentative Discharge Date: 03/15/17 Discharged to: Home
[2017-03-07] MEDS: Artificial Tear OPHTH.OINT* 3.5 GM BOTH EYES SCH (20:44)
[2017-03-07] MEDS: Senna TAB PO SCH (20:44)
[2017-03-08] MEDS: HYDROcodone/ACETAMIN 5-325 MG* 1 TAB PO PRN ×3 (00:05→12:58)
[2017-03-08] MEDS: Heparin VIAL(*) 5000 UNITS/ML VIAL (FIVE THOUSAND) SUBCUT SCH ×3 (05:40→21:37)
[2017-03-08] MEDS: Omeprazole CAP* 20 MG PO SCH (07:33)
[2017-03-08] MEDS: Aspirin Low Dose CHEW TAB* 81 MG PO SCH (08:43)
[2017-03-08] MEDS: BIOFREEZE TOPICAL SCH ×2 (08:45→21:07)
[2017-03-08] MEDS: Docusate CAP* 100 MG PO SCH ×2 (10:55→21:39)
--- NOTE | 2017-03-08 12:30 | PMRUTEAM ---
PMRU: Goals Current Status: Nursing: Current Status Skin Deviations [Left Upper Bruise Arm] Skin Deviations [Back] Bruise Skin Deviations [Right Hand] Other Skin Deviation Description [ backside of upper arm Left Upper Arm] Skin Deviation Description [ coccyx and mid back under brace Back] Skin Deviation Description [ mepalex in place Right Hand] Bladder Current Status continent Nutrition Current Status inadequate Medication Current Status norco given for shoulder pain Physical Therapy: Current Status Bed Mobility Assistance Supervision Transfer Moblility Assistance Contact Guard Assist Transfer/Bed Mobility Rolling Walker Recommended Devices Ambulation Assistance Contact Guard Assist Ambulation Assistive Devices Rolling Walker Number of Feet Patient 6 Ambulated Stairs Assistance Independent Stairs Recommended Devices Two Rails Number of Stairs 3 Occupational Therapy: Current Status Upper Body Dressing Mod Assist Lower Body Dressing Max Asst,Total Assist Bathing Mod Assist Toileting Max Asst Toilet Transfer Contact Guard Assist,Min Assist Shower Transfer Progress N/A 2* TLSO Eating Independent Rec Therapy: Current Status Summary of Assessment and RT assessment complete and pt. is aware of RT Clinical Impression services. Pt. is very talkative and engaged in leisure sessions and has leisure material in his room. Treatment Goals Pt. will continue to engage in leisure activities while on the unit. Treatment Plan Provide RT services and encourage involvement. Social Work: Current Status Discharge Plan return home with home care svs and family support Potential for Family Training pt's daughter is attentive and involved Anticipated Discharge Home Destination Discharge With home care svs and family support Nutrition: Current Status Monitoring Pt currently on a heart healthy caffeine okay diet . Noted variable intake of 0-95% of meals. Pt receiving Ensure Enlive (350 kcals, 20 grams protein per serving) at breakfast and lunch, which he has been drinking. Wound noted to pt's R hand, however no pressure related skin breakdown. Last BM documented 03/08. Pt is ordered for a scheduled bowel regimen. Labs reviewed from 03/07: electrolytes WNL, Glucose 112. Will visit pt today to conduct nutrition assessment per protocol. Goals: Physical Therapy: Updated Goals Transfer/Bed Mobility Rolling Walker Recommended Devices Occupational Therapy: Initial Goals Goals to be Completed in (Days 7-10 ) Upper Body Bathing Routine Modified Independent with Lower Body Bathing Routine Minimal Contact Assist Upper Body Dressing Routine Minimal Contact Assist Lower Body Dressing Routine Modified Independent with Toilet Hygeine and Clothing Modified Independent with Management Routine Toilet Transfer Routine Modified Independent with Step-In Shower Transfer Modified Independent with Routine Tub Transfer Routine Supervision/Set Up Functional Transfers for ADL Modified Independent with Grooming Routine Independent Feeding Routine Independent Nutrition: Goals Intervention Goals 1. Adequate PO intake to maintain weight/prevent loss of lean body mass 2. Maintain regularity of BM w/o constipation (or diarrhea) 3. Maintain skin integrity - no skin breakdown. Social Work: Goals Discharge Plan return home with home care svs and family support Potential for Family Training pt's daughter is attentive and involved Anticipated Discharge Home Destination Discharge With home care svs and family support Care Plan: Care Plan ADL's - Improve/Maintain Start: 03/05/17 12:58 Freq: QSHIFT Status: Active Target: Activity Type Activity Date Activity User E-Sign Co-Sign Detail Recorded Client Recorded Date Recorded By Document 03/05/17 12:59 [id number] 03/05/17 13:00 [id number] 03/05/17 12:59 PMRU Outcome: ADL's/ADL Transfers Orders/Interventions Occupational Therapy Evaluation & Treatment Communication Tool in Patient Room Device Yes Address Deficits Secondary To: T8 fx with TLSO Patient to receive OT 5x/wk for 60-120 Therex min/day Self Care Management Group Therapy UE/LE ADL's with Assist Yes: [place] ADL Transfers with Assist Yes: Chidi Toileting: Transfers,Clothing Management Yes: Chidi ,Hygeine w/Assist Light Kitchen/Laundry w/Assist No Progression Toward Outcome/Goals Progressing Outcome/Goals Met Pt participated well in OT evaluation at bed level with log rolling left and right in supine for dressing/ bathing/ toileting with increased assistance. Pt with limited upright tolerance 2* c/ o right shoulder pain with sitting upright which limits independence and progress/ participation. DVT Prophylaxis- Improve/Maintain Start: 03/06/17 03:54 Freq: QSHIFT Status: Active Target: Activity Type Activity Date Activity User E-Sign Co-Sign Detail Recorded Client Recorded Date Recorded By Document 03/08/17 00:32 [id number] [id number] 03/08/17 00:32 [id number] 03/08/17 00:32 PMRU Outcome: DVT Prophylaxis Outcome/Goals Remains Free of DVT Complies with DVT Prophylaxis /Treatment Demonstrates Knowledge of DVT Prevention/ Treatment TEDS Stockings on Every AM, Off at HS Progression Toward Outcome/Goals Progressing /GI-Improve/Maintain Start: 03/06/17 03:54 Freq: QSHIFT Status: Active Target: Activity Type Activity Date Activity User E-Sign Co-Sign Detail Recorded Client Recorded Date Recorded By Document 03/08/17 00:32 [id number] [id number] 03/08/17 00:32 [id number] 03/08/17 00:32 PMRU Outcome: Genitourinary/ Gastrointestinal Genitourinary- Outcome/Goals Maintain/ Achieve Urinary Continence Maintain/ Achieve Adequate Urinary Output Gastrointestinal-Outcome/Goals Maintain/ Achieve Bowel Regularity in Accordance with Pt's Baseline Remain Free of Emesis Prevent Constipation Bowel Program Progression Toward Outcome/Goals - Progressing Progression Toward Outcome/Goals - GI Not Progressing Outcome/Goals Met Comment pt declined HS bowel meds Mobility- Improve/Maintain Start: 03/04/17 14:27 Freq: QSHIFT Status: Active Target: Activity Type Activity Date Activity User E-Sign Co-Sign Detail Recorded Client Recorded Date Recorded By Document 03/07/17 14:17 [id number] [id number] 03/07/17 14:17 [id number] 03/07/17 14:17 PMRU Outcome: Mobility Physical Therapy Evaluation and Yes Treatment Activity OOB with Assistance Yes Device Yes Assistance Yes Patient to be seen 5x/wk for 60-120 min/ Therex day for: Mobility Training Gait Training Balance Other Therapy Comment TLSO Outcome/Goals Maintain/ Achieve Baseline Mobility Status Improve Mobility Status Demonstrates Proper Use of Assistive Devices Free from Complications of Immobility Progression Toward Outcome/Goals Not Progressing Bed Mobility Yes: Independent Transfers Yes: Modified independent with RW Gait x ft Yes: Modified independent 150 ' with RW Up/Down Stairs Yes: Independent 3 steps 2 rails With HEP Yes: Independent Medicine Note: Length of Stay: 7 days Anticipated Discharge Destination: Home Tentative Discharge Date: 03/15/17 Discharged to: Home
[2017-03-08] MEDS: Artificial Tear OPHTH.OINT* 3.5 GM BOTH EYES SCH (21:07)
[2017-03-08] MEDS: Senna TAB PO SCH (21:16)
[2017-03-09] MEDS: HYDROcodone/ACETAMIN 5-325 MG* 1 TAB PO PRN ×4 (00:34→16:26)
[2017-03-09] MEDS: Heparin VIAL(*) 5000 UNITS/ML VIAL (FIVE THOUSAND) SUBCUT SCH ×3 (05:47→21:25)
[2017-03-09] MEDS: Omeprazole CAP* 20 MG PO SCH (08:07)
[2017-03-09] MEDS: Aspirin Low Dose CHEW TAB* 81 MG PO SCH (08:30)
[2017-03-09] MEDS: BIOFREEZE TOPICAL SCH ×2 (08:30→20:09)
[2017-03-09] MEDS: Docusate CAP* 100 MG PO SCH ×2 (08:35→20:09)
[2017-03-09] MEDS: Senna TAB PO SCH (20:09)
[2017-03-09] MEDS: Artificial Tear OPHTH.OINT* 3.5 GM BOTH EYES SCH (20:10)
[2017-03-10] MEDS: Heparin VIAL(*) 5000 UNITS/ML VIAL (FIVE THOUSAND) SUBCUT SCH ×3 (05:00→21:51)
[2017-03-10] MEDS: Omeprazole CAP* 20 MG PO SCH (06:31)
[2017-03-10] MEDS: HYDROcodone/ACETAMIN 5-325 MG* 1 TAB PO PRN ×3 (08:03→16:14)
[2017-03-10] MEDS: Aspirin Low Dose CHEW TAB* 81 MG PO SCH (08:03)
[2017-03-10] MEDS: BIOFREEZE TOPICAL SCH ×2 (08:04→20:12)
[2017-03-10] MEDS: Docusate CAP* 100 MG PO SCH ×2 (08:08→20:13)
[2017-03-10] MEDS: Senna TAB PO SCH (20:13)
[2017-03-10] MEDS: Artificial Tear OPHTH.OINT* 3.5 GM BOTH EYES SCH (20:17)
[2017-03-11] MEDS: Heparin VIAL(*) 5000 UNITS/ML VIAL (FIVE THOUSAND) SUBCUT SCH ×3 (05:55→20:57)
[2017-03-11] MEDS: Omeprazole CAP* 20 MG PO SCH (05:58)
[2017-03-11] MEDS: HYDROcodone/ACETAMIN 5-325 MG* 1 TAB PO PRN ×3 (08:05→18:41)
[2017-03-11] MEDS: BIOFREEZE TOPICAL SCH ×2 (08:08→20:10)
[2017-03-11] MEDS: Aspirin Low Dose CHEW TAB* 81 MG PO SCH (08:08)
[2017-03-11] MEDS: Docusate CAP* 100 MG PO SCH ×2 (08:13→20:03)
[2017-03-11] MEDS: Senna TAB PO SCH (20:03)
[2017-03-11] MEDS: Artificial Tear OPHTH.OINT* 3.5 GM BOTH EYES SCH (20:04)
[2017-03-12] MEDS: HYDROcodone/ACETAMIN 5-325 MG* 1 TAB PO PRN ×5 (00:24→23:48)
[2017-03-12] MEDS: Omeprazole CAP* 20 MG PO SCH (05:37)
[2017-03-12] MEDS: Heparin VIAL(*) 5000 UNITS/ML VIAL (FIVE THOUSAND) SUBCUT SCH ×3 (05:38→21:19)
[2017-03-12] MEDS: Docusate CAP* 100 MG PO SCH ×2 (07:55→21:14)
[2017-03-12] MEDS: Aspirin Low Dose CHEW TAB* 81 MG PO SCH (07:55)
[2017-03-12] MEDS: BIOFREEZE TOPICAL SCH ×2 (07:55→21:19)
[2017-03-12] MEDS: Senna TAB PO SCH (21:14)
[2017-03-12] MEDS: Artificial Tear OPHTH.OINT* 3.5 GM BOTH EYES SCH (21:19)
[2017-03-13] MEDS: HYDROcodone/ACETAMIN 5-325 MG* 1 TAB PO PRN ×4 (04:45→23:07)
[2017-03-13] MEDS: Heparin VIAL(*) 5000 UNITS/ML VIAL (FIVE THOUSAND) SUBCUT SCH ×3 (04:47→20:53)
[2017-03-13] MEDS ORDERED: Polyethylene Glycol 3350* 17 GM PACKET PO PRN (08:54)
[2017-03-13] MEDS: Omeprazole CAP* 20 MG PO SCH (09:28)
[2017-03-13] MEDS: Docusate CAP* 100 MG PO SCH ×2 (09:28→20:49)
[2017-03-13] MEDS: Aspirin Low Dose CHEW TAB* 81 MG PO SCH (09:28)
[2017-03-13] MEDS: BIOFREEZE TOPICAL SCH ×2 (09:29→20:49)
[2017-03-13] MEDS: Senna TAB PO SCH (20:49)
[2017-03-13] MEDS: Artificial Tear OPHTH.OINT* 3.5 GM BOTH EYES SCH (20:49)
[2017-03-14] MEDS: HYDROcodone/ACETAMIN 5-325 MG* 1 TAB PO PRN ×4 (03:31→21:53)
[2017-03-14] MEDS: Heparin VIAL(*) 5000 UNITS/ML VIAL (FIVE THOUSAND) SUBCUT SCH ×3 (05:14→21:28)
[2017-03-14 05:40] LABS: Add Diff/Slide Review? Slide Review Added; Comments Flag Yes; Hematocrit 41 % (42-52); Hemoglobin 13.5 g/dl (14.0-18.0); Mean Corpuscular HGB Conc 33 g/dl (31-36); Mean Corpuscular Hemoglobin 29 pg (27-31); Mean Corpuscular Volume 88 fL (80-94); Mean Platelet Volume 8 um3 (7.4-10.4); Red Blood Count 4.61 10^6/ul (4.0-5.4); Red Cell Distribution Width 17 % (10.5-15); White Blood Count 12.2 10^3/ul (3.5-10.8)
[2017-03-14 06:00] LABS: Albumin 3.2 g/dL (3.2-5.2); BUN/Creatinine Ratio 32.4 (8-20); Calcium 9.2 mg/dL (8.6-10.3); EGFR African American 142.9 (>60); EGFR Non-African American 111.1 (>60); Globulin 3.2 g/dL (2-4); Potassium 4.4 mmol/L (3.5-5.0); Total Bilirubin 0.7 mg/dL (0.2-1.0); Total Protein 6.4 g/dL (6.4-8.9)
[2017-03-14] MEDS: Omeprazole CAP* 20 MG PO SCH (08:14)
[2017-03-14] MEDS: BIOFREEZE TOPICAL SCH ×2 (08:15→21:21)
[2017-03-14] MEDS: Aspirin Low Dose CHEW TAB* 81 MG PO SCH (08:15)
[2017-03-14] MEDS: Docusate CAP* 100 MG PO SCH ×2 (08:15→21:23)
[2017-03-14] MEDS: Artificial Tear OPHTH.OINT* 3.5 GM BOTH EYES SCH (20:50)
[2017-03-14] MEDS: Senna TAB PO SCH (21:22)
[2017-03-15] MEDS: HYDROcodone/ACETAMIN 5-325 MG* 1 TAB PO PRN ×3 (02:35→12:10)
[2017-03-15] MEDS: Heparin VIAL(*) 5000 UNITS/ML VIAL (FIVE THOUSAND) SUBCUT SCH (05:05)
[2017-03-15 05:12] VITALS: BP 148/46
[2017-03-15] MEDS: Docusate CAP* 100 MG PO SCH (08:16)
[2017-03-15] MEDS: Aspirin Low Dose CHEW TAB* 81 MG PO SCH (08:16)
[2017-03-15] MEDS: Omeprazole CAP* 20 MG PO SCH (08:16)
[2017-03-15] MEDS: BIOFREEZE TOPICAL SCH (08:17)
--- NOTE | 2017-03-17 07:29 | DS ---
CC: Dr. Troy Lynn * DISCHARGE SUMMARY: DATE OF ADMISSION: 03/04/17 DATE OF DISCHARGE: 03/15/17 DISCHARGE DIAGNOSES: 1. T8 compression fracture. 2. Benign prostatic hypertrophy. 3. Gastroesophageal reflux disease. 4. Elevated troponin, without cardiac cause. 5. Occlusion of distal right femoral and popliteal arteries. HISTORY OF PRESENT ILLNESS AND HOSPITAL COURSE: For complete history of the events leading up to his rehab stay, please see the history and physical dictated by me on 03/04/17. While on the rehab unit, the patient had a great deal of pain in his right shoulder and left shoulder. A right shoulder x-ray was done as the patient had a fall. No fractures were seen. The patient did not act like he had an acute rotator cuff tear. It was unclear what the cause of his shoulder pain was. Further evaluation may be necessary in the future. The patient had a scalp laceration. That healed well. The sruthi were able to be removed. The patient could not have an MRI before the sruthi were removed. It was recommended that the patient have an MRI as an outpatient after discharge. That was arranged. It was noted that the patient had fallen and had a history of orthostatic hypotension that seemed to date to his starting Flomax. His Flomax was discontinued while on the rehab unit. He was able to urinate and had no further episodes of orthostatic hypotension after that. The patient otherwise was medically stable. The patient was seen by physical and occupational therapy and made good gains with both disciplines. With physical therapy, at the time of admission, the patient required min. assist for transfer, contact guard to ambulate about 3 feet. He was with occupational therapy. At the time of admission, the patient required max assist for upper body dressing, total assistance for lower body dressing, total assistance for toileting. By the time of discharge, the patient was independent with transfers, independent ambulating 150 feet with a 2-wheeled walker, independent going up and down flight of stairs, min. assist to do upper body dressing, lower body dressing was independent. He was independent in toilet transfers and toileting, but did require supervision if he was having a lot of shoulder pain. His TLSO should remain on at all times until he has a followup MRI. The patient was discharged home on 03/15/17. DISCHARGE DIET: Regular. DISCHARGE MEDICATIONS: 1. Aspirin 81 mg daily. 2. [place] 5/325 one tablet every 4 hours as needed for pain. 3. Omeprazole 20 mg daily. 4. Senokot 2 tablets at bedtime. 5. As mentioned, his Flomax was discontinued. 6. Biofreeze to his right shoulder twice daily. SERVICES AFTER DISCHARGE: The patient will have outpatient physical therapy starting 03/16/17. In addition, the patient will need an outpatient MRI. He will also follow up with Dr. Troy Lynn following his MRI. The MRI interview was arranged for 03/17/17. [id number]/[facility] #: [id number] ZEE
== END 2017-03-15 13:40 | disposition home or self-care (01) | DRG 561 ==
LOC: PMRU 13:18
PROVIDERS: ADMIT Physical Medicine & Rehabilitation; ATTEND Physical Medicine & Rehabilitation
PROC: F07Z5ZZ Bed Mobility Treatment (ICD-10-PCS; principal; 2017-03-04)
PROC: F07Z9ZZ Gait Training/Functional Ambulation Treatment (ICD-10-PCS; 2017-03-04)
PROC: F07Z8ZZ Transfer Training Treatment (ICD-10-PCS; 2017-03-04)
PROC: F08Z0ZZ Bathing/Showering Techniques Treatment (ICD-10-PCS; 2017-03-04)
PROC: F08Z1ZZ Dressing Techniques Treatment (ICD-10-PCS; 2017-03-04)
PROC: F08Z3ZZ Feeding/Eating Treatment (ICD-10-PCS; 2017-03-04)
DX: S22.068D Other fracture of T7-T8 thoracic vertebra, subsequent encounter for fracture with routine healing (principal); I77.1 Stricture of artery; K21.9 Gastro-esophageal reflux disease without esophagitis; W18.30XD Fall on same level, unspecified, subsequent encounter; N40.0 Benign prostatic hyperplasia without lower urinary tract symptoms; R74.8 Abnormal levels of other serum enzymes; M25.512 Pain in left shoulder; M25.511 Pain in right shoulder; I95.1 Orthostatic hypotension; Z79.82 Long term (current) use of aspirin; Z79.899 Other long term (current) drug therapy
CPT/HCPCS: 36415; 80053; 85025; A9270-GY; J1644